=== PATIENT | female | born 1990 | race Caucasian/White ===

== ENCOUNTER → 2022-05-22 | Outpatient (CLI) | payer BC, OTHER, SELFPAY ==
[2022-05-22 11:56] LABS: Absolute Lymphocyte Count 2.24 X10^3/uL (0.83-4.51); Absolute Neutrophil Count 2.7 X10^3/uL (2.0-7.7); Basophil# 0.02 X10^3/uL; Basophil% 0.4 % (0-1); Eosinophil# 0.08 X10^3/uL; Eosinophils% 1.4 % (0-5); Hemoglobin 15.5 g/dL (12.0-15.0); Lymphocyte # 2.24 X10^3/ul (0.83-4.51); Lymphocyte % 40.1 % (19-41); Mean Corp Hgb Conc 33.7 g/dL (32-36); Mean Corpuscular Volume 86.1 fL (81-99); Mean Platelet Vol. 9.8 fl (6.2-12.0); Monocyte# 0.48 X10^3/uL; Monocyte% 8.6 % (0-10); NRBC Flagged by Analyzer 0 % (0-5); Neutrophil # 2.71 X10^3/uL (2.7-7.7); Neutrophil % 48.4 % (47-70); Platelet Count 249 K/mm3 (150-450); RBC Distribution Width CV 12.1 % (11.6-14.6); Red Blood Count 5.34 M/mm3 (4.2-5.4); White Blood Count 5.6 K/mm3 (4.4-11.0)
[2022-05-22 12:13] LABS: Hemoglobin A1c 5.1 % (3.8-5.6)
[2022-05-22 12:16] LABS: ALB/GLOB Ratio 1.1 RATIO (0.9-2.4); AST(SGOT) 13 U/L (15-37); Alanine Aminotransfer ALT/SGPT 17 U/L (13-56); Alkaline Phosphatase 48 U/L (45-117); Anion Gap 5 (5-15); BUN 13 mg/dL (7-18); Calcium,Total 8.8 mg/dL (8.5-10.1); Chloride 105 mmol/L (98-107); Cholesterol 178 mg/dL (200); Creatinine, Serum 0.87 mg/dL (0.55-1.02); EST Glomerular Filtration Rate 81 mL/min (>60); Est Glom Filt Rate - Afr Amer 98 mL/min (>60); Globulin 3.8 g/dL (2.2-4.2); Glucose 87 mg/dL (74-106); High Density Lipoprotein 50 mg/dL; Potassium 4.3 mmol/L (3.5-5.1); Protein, Total 7.8 g/dL (6.4-8.2); Sodium Level 138 mmol/L (136-145); Thyroid Stim Hormone (TSH) 1.23 uIU/mL (0.358-3.74); Triglycerides 104 mg/dL; Very Low Density Lipoprotein 21 mg/dL (5-40)
== END | disposition home or self-care (01) ==
LOC: MFPLAB 10:19
PROVIDERS: PCP Family Medicine; Referring Provider Family Medicine; Visit Provider Family Medicine
DX: Z00.00 Encounter for general adult medical examination without abnormal findings (principal); Z13.0 Encounter for screening for diseases of the blood and blood-forming organs and certain disorders involving the immune mechanism; Z13.1 Encounter for screening for diabetes mellitus; Z13.220 Encounter for screening for lipoid disorders; Z13.228 Encounter for screening for other metabolic disorders
CPT/HCPCS: 36415; 80053; 80061; 83036; 84443; 85025

== ENCOUNTER → 2022-08-01 | Outpatient (CLI) | payer OTHER, BC, SELFPAY ==
[2022-08-08 15:19] LABS: HPV APTIMA, High Risk Negative (Negative)
== END | disposition home or self-care (01) ==
LOC: LABSPEC 16:23
PROVIDERS: PCP Family Medicine; Visit Provider Obstetrics & Gynecology
DX: Z12.4 Encounter for screening for malignant neoplasm of cervix (principal)
CPT/HCPCS: 87624; 88175; G0145

== ENCOUNTER 2023-03-12 06:57 | Day surgery (SDC) | payer OTHER, SELFPAY ==
[2023-03-11 08:03] VITALS: BMI 24.8
[2023-03-12 07:06] LABS: Hematocrit 45.5 % (37-47); Hemoglobin 15.3 g/dL (12.0-15.0); Mean Corp Hgb Conc 33.6 g/dL (32-36); Mean Corpuscular Hgb 29.4 pg (27.0-32.0); Mean Corpuscular Volume 87.3 fL (81-99); Mean Platelet Vol. 9.7 fl (6.2-12.0); Platelet Count 244 K/mm3 (150-450); RBC Distribution Width CV 11.9 % (11.6-14.6); RBC Distribution Width SD 38.5 fl (35.1-43.9); Red Blood Count 5.21 M/mm3 (4.2-5.4); White Blood Count 4.8 K/mm3 (4.4-11.0)
[2023-03-12 07:18] LABS: Anion Gap 5 (5-15); BUN 18 mg/dL (7-18); BUN/Creat Ratio 20.2 RATIO (10-20); Calcium,Total 9.2 mg/dL (8.5-10.1); Chloride 106 mmol/L (98-107); Creatinine, Serum 0.89 mg/dL (0.55-1.02); EST Glomerular Filtration Rate 78 mL/min (>60); Est Glom Filt Rate - Afr Amer 94 mL/min (>60); Estimated Creatinine Clearance 94.84 ml/min; Glucose 90 mg/dL (74-106); Potassium 4.5 mmol/L (3.5-5.1); Sodium Level 137 mmol/L (136-145)
--- NOTE | 2023-03-12 07:19 | PCM.HP.STD ---
[facility] - General General Date of Service: 03/12/23 [facility] Narrative ANTHONY CAMARGO, is a 33 F who presents for venogram. She has painful, prominent varicosities of LLE which have been present in some capacity since her teenage years but became much worse after she had children a few years ago. She has consistently worn compression without sufficient relief of her symptoms. She was considering ablation with another vascular surgeon who felt she may have May-Thurner's but had planned to proceed with ablation, she initially presented to this office for second opinion. After discussion, ultimately decided to proceed first with venogram to assess for significant central venous compression prior to any potential venous ablation. She denies any interval changes in her medical history or medications since her last office visit. She denies history of VTE, prior venous ablations, prior injury/surgery to LLE. Today, she is feeling well with no CP, SOB, N/V, F/C, palpitations, lightheadedness/syncope. PFSH Home Medications multivitamin 1 tab PO DAILY 08/01/22 [History Last Taken Unknown] cholecalciferol (vitamin D3) 50 mcg (2,000 unit) capsule 50 mcg PO DAILY 11/27/22 [History Last Taken Unknown] Allergy/AdvReac Type Severity Reaction Status Date / Time No Known Allergies Allergy Unverified 12/04/22 14:32 Family History Mother Breast cancer Social History Smoking Status: Never smoker alcohol intake: never substance use type: does not use caffeine: Yes what type of physical activity do you participate in: running frequency: 3-4 times per week seatbelt use: always do you feel safe at home: Yes additional social history: - Blade BOYD ROS Narrative ROS General General: Yes weight change; No appetite, fatigue, colon cancer, breast cancer or weakness HEENT HEENT: No difficulty swallowing, eye injury, eye surgery, swollen glands or hoarseness Endo Endocrine: No thyroid disease, diabetes mellitus, thyroid cancer, Hair loss, heat intolerance or cold intolerance Skin Skin: No rash or changing moles Musc Musculoskeletal: No back problems, arthritis, rheumatoid arthritis, gout or joint pain Cardio Cardiovascular: No murmur, pacemaker, heart disease, atrial fibrillation, high blood pressure, heart attack, heart stent, palpitations, shortness of breat with exertion or chest pain Psych Psychiatric: No depression, anxiety or hearing voices Resp Respiratory: No shortness of breath, No sleep apnea, No cough, No COPD, No asthma, No emphysema and No wheezing Gastro Gastrointestinal: No abdominal pain, No nausea or vomiting, No diarrhea, No constipation, No blood in stool, No acid reflux, No hemorrhoids, No ulcers, No gallbladder problem and No black,tarry stools Flip Hematologic: No blood thinners, No blood disorders, No bleeding, No anemia and No blood clots Neuro Neurologic: No system reviewed and no additional complaints, except as documented, No as per HPI, No abnormal gait, No abnormal hearing, No abnormal movements, No abnormal speech, No behavioral changes, Yes burning sensations, No confusion, No convulsions, No disequilibrium, No dizziness, No localized weakness, No frequent falls, No headache(s), No lack of coordination, No loss of vision, No memory loss, No numbness, No other visual disturbances, No radicular pain, No restless legs, No sensory deficit, No syncope, No tingling, No tremor(s), No weakness and No other Vital Signs Vital Signs Vital Signs: Weight Weight: 168 lb 8 oz Body Mass Index (BMI) 24.8 Physical Exam Narrative Exam Const General: cooperative, healthy appearing, comfortable and no acute distress Orientation: alert, awake and oriented x3 HENMT Head: normal to inspection, normocephalic and atraumatic Ears: hearing grossly normal bilaterally and external ears normal Nose: external nose normal Eyes General: appearance normal, both eyes and all related structures EOM: EOM intact bilaterally Neck Neck: normal visual inspection, full ROM, trachea midline and no anterior neck swelling Resp Effort & Inspection: normal respiratory effort, able to speak in complete sentences, symmetric chest movement, no audible wheezes, not labored, no stridor and no use of accessory muscles Auscultation: clear to auscultation bilaterally Cardio Rate: regular rate Rhythm: regular rhythm Pulses: brachial pulses present, radial pulses present, posterior tibial pulses present and dorsalis pedis present Skin General: no rashes or lesions noted, no ecchymosis, no erythema, no mottling, no petechiae, no purpura and no pallor Trauma: no lacerations or abrasions Wounds: no wounds Neuro General: patient alert, patient awake, patient oriented x3, gait normal, moves all extremities, no focal motor deficits and CN's II-XI intact bilaterally Cognition: normal cognition Speech: speech normal Sensory Exam: no sensory deficits noted Extremities Pulses: Normal: Right Dorsalis Pedis Pulse, Left Dorsalis Pedis Pulse, Right Posterior Tibial Pulse, Left Posterior Tibial Pulse, Right Radial Pulse and Left Radial Pulse Additional Details: Prominent cluster of varicosities medial aspect L knee, less prominent varicosities extending up the thigh and down calf medially and laterally. No varicosities on RLE. Psych Appearance: grossly normal Mental Status: mental status grossly normal Mood: congruent mood Affect: normal affect Speech and Movement: speech and movement normal Attitude: cooperative Thought Process: normal Thought Content: normal Judgment: judgment good Results Lab / Micro Data Result Diagrams: 03/12/23 06:52 03/12/23 06:52 Labs: Laboratory Results - last 24 hr 03/12/23 06:52: WBC 4.8, RBC 5.21, Hgb 15.3 H, Hct 45.5, MCV 87.3, MCH 29.4, MCHC 33.6, RDW Std Deviation 38.5, RDW Coeff of Derick 11.9, Plt Count 244, MPV 9.7 03/12/23 06:52: Sodium 137, Potassium 4.5, Chloride 106, Carbon Dioxide 26.0, Anion Gap 5, BUN 18, Creatinine 0.89, Estim Creat Clear Calc 94.84, Est GFR (MDRD) Af Amer 94, Est GFR (MDRD) Non-Af 78, BUN/Creatinine Ratio 20.2 H, Glucose 90, Calcium 9.2 Assessment & Plan Assessment/Plan (1) Varicose veins of left lower extremity: PLAN: We discussed the procedure and patient had all of her questions and concerns addressed. She remains agreeable to proceed with venogram today with the understanding that if significant compression is identified it would be treated with stenting as appropriate. She also understands that if stents were placed she would be placed on DAPT x1 year then ASA indefinitely. She will follow-up in the office in 2-4 weeks following procedure today.
[2023-03-12 07:26] LABS: Internal QC Validated? YES +Cl - CLEAR BKGD; Pregnancy, Serum, hCG Quali. NEGATIVE Negative
--- NOTE | 2023-03-12 12:49 | PCM.OPRPT ---
Report of Operation Date of Procedure: 03/12/23 Pre-Operative Diagnosis: venous hypertension, bilateral venous reflux and painful varicose veins Post-Operative Diagnosis: same Surgery/Procedure Performed:: venogram IVC IVUS IVC, bilateral common/external iliac veins angioplasty/stent IVC, bilateral common/external iliac veins Surgeon: Dangelo Rome Type of Anesthesia: Local and Sedation,Conscious Estimated Blood Loss (mL): 3 Description of Procedure: HPI: Patient is a 33-year-old female with lower extremity painful varicose veins and significant reflux including common femoral deep vein reflux suggestive of more proximal obstructive process. She presents now for venogram with possible invention. Description of procedure: Upon obtaining informed consent and verification correct patient procedure site patient was taken to the [facility] where she was positioned prepped and draped in usual sterile fashion. Time was then performed and conscious sedation ministered with Versed and fentanyl. Skin overlying the left common femoral vein was anesthetized with 1% lidocaine and the vessel accessed under ultrasound guidance with a micropuncture needle wire. This was then exchanged for micropuncture sheath through which injection ilio caval venogram was performed which revealed satisfactory placement with no extravasation or dissection. Also revealed significant pelvic collaterals venous flow and widened superior aspect of the common iliac vein. This suggested compression of the iliac vein. Through the micropuncture sheath a J-wire was advanced and the micropuncture sheath exchanged out for a 9 [place] sheath. Skin overlying the right femoral vein was anesthetized with 1% lidocaine and the vessel accessed under all segments with a microneedle wire. This was exchanged out for micropuncture sheath which injection ilio caval venogram was performed which again revealed satisfactory placement no extravasation or dissection. This revealed a fairly normal appearance of the right iliac system normal-appearing vena cava. The micropuncture sheath was then exchanged out for a second 9 [place] sheath and a J-wire advanced via the sheath into the vena cava. Patient was in heparinized allowed to circulate 3 minutes and serial heparin dosing performed based on ACT measurements. Intravascular ultrasound advanced via the left femoral access sheath into the inferior vena cava and recorded pullback of the IVC, left common iliac, left external iliac vein was performed. This revealed 75% compression of the vena cava just above the confluence and of the superior aspect of the left common iliac vein. There is also secondary compression point of the superior portion of the left external iliac vein. The ultrasound probe was then withdrawn and readvanced via the right femoral access sheath and recorded pullback of the IVC, right common iliac, right external iliac performed. This revealed 79% compression of the right external iliac. [place] this was amenable to endovascular therapy ilio caval stenting was required. A [place] Vena self-expanding stent 16 x 140 was advanced via the right femoral access sheath and deployed with satisfactory coverage of the stenting cephalad to just below the confluence. Next a 14 x 140 [place] Vena self-expanding stent 14 x 140 was advanced via the left femoral access sheath and positioned femoral artery and iliac vein covering the area of compression and extending up to the IVC confluence. This was deployed in position stents were then postdilated 12 mm angioplasty balloon to fix them in the position. Next wallstents were selected for the ilio-caval component of the intervention. A 16 x 90 wildcraft Wallstent was selected for each of the common iliac and IVC stents. These were advanced in the position with satisfactory overlap into the initial stents and coverage of the area of compression up into the IVC. These were then deployed simultaneously with satisfactory stent positioning and good alignment at the superior aspect. Delivery system was then withdrawn and the wallstents were then postdilated with a 14 mm angioplasty balloon simultaneously across the IVC stented segment and down into the common iliac stents bilaterally. Balloons were then withdrawn and completion intravascular ultrasound assessment was performed via each of the femoral access sheaths confirming satisfactory stent to wall apposition throughout the entirety of the stented segment with no residual compression identified. There was satisfactory stent overlap. And stent alignment at the superior aspect. Wires were then withdrawn and the sheaths were removed with manual pressure held for 5 minutes with satisfactory stasis noted. Patient was then awakened from sedation taken recovery room for bedrest before discharged home. Grafts/Implants Used: Right- Wallstent 16x90, Vena [id number]: Left- Wallstent 16x90, Vena [id number]
[2023-03-13 09:52] LABS: ACT Activated Clotting Time 233 sec (74-137)
== END 2023-03-12 13:55 | disposition home or self-care (01) ==
PROVIDERS: PCP Family Medicine; Referring Provider Surgery Trauma Surgery; Visit Provider Surgery Trauma Surgery
DX: I83.813 Varicose veins of bilateral lower extremities with pain (principal)
CPT/HCPCS: 36010; 36415; 37238; 37239; 37252; 37253; 75825; 76937; 80048; 84703; 85027; 85347; 99152; 99153; C1753; J7040; C1769; C1876; C1887

== ENCOUNTER → 2023-09-16 | Outpatient (CLI) | payer OTHER, SELFPAY ==
--- NOTE | 2023-09-16 08:57 | AAVD_ITS ---
Reason For Study: BLE Iliac Stents Inferior Vena Cava Proximal inferior vena cava measures 1.98 x 2.11 cm. in the cross-sectional axis. Proximal inferior vena cava measures 1.58 cm. in the longitudinal axis. Mid inferior vena cava measures 1.2 cm. in the longitudinal axis. The inferior vena cava has spontaneous, phasic flow throughout. Left Common Iliac Vein Stent Noted Throughout CIV Prox Stent Trans - 1.08cm x 1.06cm Prox Stent Long - 1.06cm Mid Stent Trans - 0.92cm x 0.98cm Mid Stent Long - 1.00cm Dist Stent Trans - 1.00cm x 1.13cm Dist Stent Long - 1.08cm Post Stent Long - 1.18cm. The left common iliac vein has spontaneous, phasic flow throughout. Right Common Iliac Vein Stent Noted Throughout CIV Prox Stent Trans - 1.05cm x 1.00cm Prox Stent Long - 1.05cm Mid Stent Prox - 1.29cm x 1.27cm Mid Stent Long - 1.31cm Dist Stent Prox - 1.33cm x 1.29cm Dist Stent Long - 1.31cm Post Stent Long - 1.15cm.. The right common iliac vein has spontaneous, phasic flow throughout. Procedure Aorta IVC Iliac vasculature or bypass grafts [id number]. The exam was diagnostic. Exam performed in department. VL/Abd Aortic/IVC Duplex scan Interpretation Summary Patent inferior vena cava and bilateral iliac vein stents with normal flow sally acteristics. Ordering Physician: Griselda Majano Referring Physician: Griselda Majano Performed By: Frederic Malloy RVT
== END | disposition home or self-care (01) ==
LOC: CVS 08:56
PROVIDERS: PCP Family Medicine; Referring Provider Physician Assistant; Visit Provider Physician Assistant
DX: Z48.812 Encounter for surgical aftercare following surgery on the circulatory system (principal); I87.1 Compression of vein
CPT/HCPCS: 93978

== ENCOUNTER → 2024-03-07 | Outpatient (CLI) | payer OTHER, SELFPAY ==
--- NOTE | 2024-03-07 08:54 | AAVD_ITS ---
Reason For Study: Bilateral Iliac vein stents Inferior Vena Cava Proximal inferior vena cava measures 1.78 x 1.62 cm. in the cross-sectional axis. Proximal inferior vena cava measures 1.65 cm. in the longitudinal axis. Mid inferior vena cava measures 1.40 x 1.85 cm. in the cross-sectional axis. Mid inferior vena cava measures 1.20 cm. in the longitudinal axis. IVC distal, right stent, 0.98 x 0.94 x 1.18 cm. IVC distal, left stent, 1.04 x 0.97 x 1.12 cm. The inferior vena cava has spontaneous, phasic flow throughout. Left Common Iliac Vein Left common iliac vein measures 0.93 x 0.99 cm. in the cross-sectional axis. Left common iliac vein measures 0.94 cm. in the longitudinal axis. Stent noted in the left CIV. The left common iliac vein has spontaneous, phasic flow throughout. Right Common Iliac Vein Right common iliac vein measures 1.41 x 1.29 cm. in the cross-sectional axis. Right common iliac vein measures 1.31 cm. in the longitudinal axis. Stent noted in the right CIV. The right common iliac vein has spontaneous, phasic flow throughout. Procedure Aorta IVC Iliac vasculature or bypass grafts [id number]. Exam performed in department. VL/Abd Aortic/IVC Duplex scan Interpretation Summary Patent IVC and bilateral iliac vein stents with normal venous flow pattern. Ordering Physician: Griselda Majano Referring Physician: Derrick Cisneros Performed By: Peggy Whitlock RVT
== END | disposition home or self-care (01) ==
PROVIDERS: PCP Family Medicine; Referring Provider Physician Assistant; Visit Provider Physician Assistant
DX: Z48.812 Encounter for surgical aftercare following surgery on the circulatory system (principal); I87.1 Compression of vein
CPT/HCPCS: 93978

== ENCOUNTER → 2024-04-18 | Outpatient (CLI) | payer OTHER, SELFPAY ==
--- NOTE | 2024-04-18 09:04 | VDLE_ITS ---
Version 2 Reason For Study: LLE Pain RIGHT LEFT CFV is compressible, spontaneous, phasic, CFV is compressible, spontaneous, phasic, competent and demonstrates normal competent, and demonstrates normal augmentation. augmentation. Procedure FV is compressible, spontaneous, phasic, This is a venous duplex using B-mode, color competent and demonstrates normal flow and spectral Doppler. augmentation. Exam performed in department. POP V is compressible, spontaneous, phasic, The exam was diagnostic. competent and demonstrates normal augmentation. T/P Trunk is compressible. PTV is compressible. LT PerV is compressible. SFJ is INCOMPETENT and measures 0.97 cm. GSV proximal thigh measures 0.77 x 0.76 cm. GSV at knee measures 0.40 x 0.38 cm. GSV above knee is INCOMPETENT for greater than 0.5 seconds. GSV below knee is competent. SSV proximal calf is competent and measures 0.28 x 0.30 cm. GSV/ASV Tortuous prox calf to dist thigh. SSV branch appears to feed varicosities outer calf. VL/Venous Duplex US, Unilateral Interpretation Summary Deep veins of the left lower extremity are patent and compressible segmentally. There is no evidence of left lower extremity deep vein thrombosis. The left great saphenous vein kev ears patent and compressible segmentally. Positive for reflux in the left saphenofemoral junction for greater than 0.5 se conds, great saphenous vein above the knee. Ordering Physician: Griselda Majano Referring Physician: Derrick Cisneros Performed By: Frederic Malloy RVT
== END | disposition home or self-care (01) ==
PROVIDERS: PCP Family Medicine; Referring Provider Physician Assistant; Visit Provider Physician Assistant
DX: I83.92 Asymptomatic varicose veins of left lower extremity (principal)
CPT/HCPCS: 93971

== ENCOUNTER → 2024-06-22 | Outpatient (CLI) | payer OTHER, SELFPAY ==
[2024-06-22 12:20] LABS: Absolute Lymphocyte Count 1.77 X10^3/uL (0.83-4.51); Absolute Neutrophil Count 3.7 X10^3/uL (2.0-7.7); Basophil# 0.03 X10^3/uL; Basophil% 0.5 % (0-1); Eosinophil# 0.09 X10^3/uL; Eosinophils% 1.5 % (0-5); Hematocrit 44.6 % (37-47); Hemoglobin 14.7 g/dL (12.0-15.0); Lymphocyte # 1.77 X10^3/ul (0.83-4.51); Lymphocyte % 29.3 % (19-41); Mean Corpuscular Hgb 28.7 pg (27.0-32.0); Mean Corpuscular Volume 87.1 fL (81-99); Mean Platelet Vol. 9.8 fl (6.2-12.0); Monocyte# 0.45 X10^3/uL; Monocyte% 7.5 % (0-10); NRBC Flagged by Analyzer 0 % (0-5); Neutrophil # 3.67 X10^3/uL (2.7-7.7); Neutrophil % 60.7 % (47-70); Platelet Count 281 K/mm3 (150-450); RBC Distribution Width CV 11.8 % (11.6-14.6); RBC Distribution Width SD 37.5 fl (35.1-43.9); Red Blood Count 5.12 M/mm3 (4.2-5.4)
[2024-06-22 12:33] LABS: AST(SGOT) 11 U/L (15-37); Alanine Aminotransfer ALT/SGPT 16 U/L (13-56); Albumin, Serum 3.9 g/dL (3.2-5.0); Alkaline Phosphatase 49 U/L (45-117); Anion Gap 2 (5-15); BUN 11 mg/dL (7-18); BUN/Creat Ratio 13.1 RATIO (10-20); Calcium,Total 9.4 mg/dL (8.5-10.1); Chloride 104 mmol/L (98-107); Cholesterol 172 mg/dL (200); Creatinine, Serum 0.84 mg/dL (0.55-1.02); EST Glomerular Filtration Rate 83 mL/min (>60); Est Glom Filt Rate - Afr Amer 101 mL/min (>60); Globulin 3.8 g/dL (2.2-4.2); Glucose 95 mg/dL (74-106); High Density Lipoprotein 47 mg/dL; Potassium 4.5 mmol/L (3.5-5.1); Protein, Total 7.7 g/dL (6.4-8.2); Sodium Level 137 mmol/L (136-145); Triglycerides 88 mg/dL; Very Low Density Lipoprotein 18 mg/dL (5-40)
[2024-06-22 12:35] LABS: Vitamin D,25 Hydroxy 55.2 ng/mL
== END | disposition home or self-care (01) ==
LOC: MFPLAB 09:49
PROVIDERS: PCP Family Medicine; Visit Provider Family Medicine
DX: I83.90 Asymptomatic varicose veins of unspecified lower extremity (principal); Z13.21 Encounter for screening for nutritional disorder; Z13.220 Encounter for screening for lipoid disorders; Z86.32 Personal history of gestational diabetes
CPT/HCPCS: 36415; 80053; 80061; 82306; 83036; 85025

== ENCOUNTER → 2024-08-13 | Outpatient (CLI) | payer OTHER, SELFPAY ==
--- NOTE | 2024-08-13 10:54 | US_ITS ---
HISTORY: right lower quadrant pain. TECHNIQUE: Transabdominal and transvaginal pelvic ultrasound was performed with ace scale , spectral Doppler, and color Doppler evaluation. 130 images. COMPARISON: None. FINDINGS: UTERUS: 8.9 x 4.1 x 5.2 cm. Anteverted. ENDOMETRIAL THICKNESS: 6 mm. Tampon incidentally noted in the vagina. RIGHT OVARY: 1.7 x 2.2 x 2.7 cm. Vascular flow demonstrated. No adnexal masses. LEFT OVARY: 1.5 x1.9 x 3.4 cm with a 1.1 cm dominant follicle. Vascular flow demonstrated. No adnexal masses. FREE FLUID: Trace. URINARY BLADDER: Well-distended at 397 cc. US/Pelvic w/ Transvaginal IMPRESSION: Unremarkable pelvic ultrasound. Electronically Signed: Kayla Arce MD at 15:10 EST ,
== END | disposition home or self-care (01) ==
LOC: US 10:52
PROVIDERS: PCP Family Medicine; Referring Provider Obstetrics & Gynecology; Visit Provider Obstetrics & Gynecology
DX: R10.31 Right lower quadrant pain (principal); I87.1 Compression of vein
CPT/HCPCS: 76830; 76856

== ENCOUNTER 2024-12-22 07:18 | Day surgery (SDC) | payer OTHER, SELFPAY ==
[2024-12-21 08:17] VITALS: BMI 24.6
[2024-12-22 07:33] LABS: Hematocrit 42.7 % (37-47); Hemoglobin 15.1 g/dL (12.0-15.0); Mean Corp Hgb Conc 35.4 g/dL (32-36); Mean Corpuscular Hgb 29.8 pg (27.0-32.0); Mean Corpuscular Volume 84.4 fL (81-99); Mean Platelet Vol. 9.6 fl (6.2-12.0); Platelet Count 229 K/mm3 (150-450); RBC Distribution Width CV 12.2 % (11.6-14.6); Red Blood Count 5.06 M/mm3 (4.2-5.4); White Blood Count 4.8 K/mm3 (4.4-11.0)
[2024-12-22 08:21] LABS: Anion Gap 9 (5-15); BUN 17 mg/dL (4-19); BUN/Creat Ratio 19.9 RATIO (10-20); Carbon Dioxide 25.2 mmol/L (21.0-32.0); Chloride 105 mmol/L (98-108); Creatinine, Serum 0.86 mg/dL (0.70-1.20); EST Glomerular Filtration Rate 92 (>60); Estimated Creatinine Clearance 97.24 ml/min (50-250); Glucose 100 mg/dL (70-99); Potassium 4.7 mmol/L (3.3-5.1); Sodium Level 139 mmol/L (133-145)
--- NOTE | 2024-12-22 09:53 | PCM.HP.STD ---
HPI - General HPI Narrative ANTHONY CAMARGO, is a 34 F who presents with left lower extremity painful varicose veins refractory to compression. She has GSV reflux though the vessel inferiorly obliterates and communication to lower leg is via varicosities that are also incompetent. She presents for GSV chemical ablation with phlebectomy of communicating varicosities. 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 Home Medications ?Medication ?Instructions ?Recorded ?Last Taken ?Type multivitamin 1 tab PO DAILY 08/01/22 Unknown History cholecalciferol (vitamin D3) 50 50 mcg PO DAILY 11/27/22 Unknown History mcg (2,000 unit) capsule aspirin 81 mg tablet,delayed 81 mg PO DAILY 04/02/23 Unknown History release Allergy/AdvReac Type Severity Reaction Status Date / Time No Known Allergies Allergy Verified 08/02/24 14:12 Family History Mother Breast cancer Surgical History S/P insertion of iliac artery stent Social History Smoking Status: Never smoker alcohol intake: never substance use type: does not use caffeine: Yes what type of physical activity do you participate in: running and weight training frequency: 5-6 times per week seatbelt use: always do you feel safe at home: Yes additional social history: - Blade ROS Constitutional Constitutional: Denies chills, fever(s), frequent falls, lethargy or weakness Eyes Eyes: Denies blind spots, change in vision or loss of vision ENT HEENT: Denies bleeding gums, hoarseness or sore throat Cardiovascular Cardiovascular: Denies abdominal pain, bluish discoloration of hand/feet, chest pain with activity, claudication, cold extremities, cyanosis, dyspnea on exertion, erythema on extremities, irregular heart rhythm, leg edema, leg ulcers, numbness in extremities or weakness in extremities Respiratory/Chest Respiratory/Chest: Denies cough, excessive phlegm production, shortness of breath at rest, shortness of breath with exertion or wheezing Gastrointestinal Gastrointestinal: Denies anorexia, change in stool character, constipation, diarrhea, melena or rectal bleeding Genitourinary Genitourinary: Denies dysuria or hematuria Musculoskeletal Musculoskeletal: Denies abnormal gait Integumentary Integumentary: Reports other Details: ; Denies erythema, non-healing lesions or wounds Neurologic Neurologic: Denies abnormal speech, focal weakness, headache(s), loss of vision, numbness, paresthesias or sensory deficit Hematologic/Lymphatic Hematologic/Lymphatic: Denies easy bleeding, easy bruising or lymphadenopathy Vital Signs Vital Signs Vital Signs: Weight Weight: 167 lb Body Mass Index (BMI) 24.6 Physical Exam Const alert, oriented x3, no apparent distress and healthy appearing General Appearance: cooperative; Negative for combative or lethargic Orientation / Consciousness: awake Exam Limitations: no limitations HEENT Head and Scalp: normocephalic and atraumatic Eyes EOMs intact bilaterally General Eye: normal appearance of both eyes Neck full ROM General: trachea midline Resp normal respiratory effort and no use of accessory muscles Effort and Inspection: Negative for labored, stridor or audible wheezes Cardio regular rate and regular rhythm Back/Spine Cervical Spine: cervical ROM normal Extremity full ROM, normal capillary refill and no clubbing, cyanosis or edema Skin no rashes or lesions noted and no wounds Neuro oriented x3, CN's II-XII intact bilaterally, no focal motor deficits and no sensory deficits noted Psych thought process normal, cooperative, affect normal, speech normal and activity/motor behavior normal Results Lab / Micro Data 12/22/24 07:24 12/22/24 07:24 Labs: Laboratory Results - last 24 hr 12/22/24 07:24: WBC 4.8, RBC 5.06, Hgb 15.1 H, Hct 42.7, MCV 84.4, MCH 29.8, MCHC 35.4, RDW Std Deviation 37.0, RDW Coeff of Derick 12.2, Plt Count 229, MPV 9.6, Sodium 139, Potassium 4.7, Chloride 105, Carbon Dioxide 25.2, Anion Gap 9, BUN 17, Creatinine 0.86, Estim Creat Clear Calc 97.24, Est GFR (MDRD) Non-Af 92, BUN/Creatinine Ratio 19.9, Glucose 100 H, Calcium 9.0 Assessment & Plan Assessment/Plan (1) Varicose veins of left lower extremity: QUALIFIERS: Varicose vein complication: pain Qualified Code(s): I83.812 - Varicose veins of left lower extremity with pain PLAN: -with pain -chemical ablation lefft GSV, stab phlebectomy
--- NOTE | 2024-12-22 17:00 | PCM.OPRPT ---
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 She had venous duplex imaging which revealed reflux in the great saphenous vein from the saphenofemoral junction to the proximal calf with the symptomatic varicosities emanating from the saphenous at this location. Inferior to the confluence of the varicosities with the saphenous vein the vessel is very small in caliber so it was not expected that we would be able to successfully chemically ablate the origins of the saphenous varicosities along with the great saphenous treatment zone. So she is taken now for chemical ablation of the great saphenous vein with planned ligation and phlebectomy of the varicosities. Description of procedure: Upon obtaining form consent and verification correct patient procedure site patient taken to the Material Control Supervisor where she was positioned prepped and draped in usual sterile fashion. Time was then performed conscious sedation administered Versed and fentanyl. The great saphenous vein was evaluated ultrasound and found to be patent and continuous from the saphenofemoral junction down to the proximal calf. In the proximal calf there is a large varicosity cluster confluence and inferior to this the great saphenous vein was very small in caliber and too small to access. From the varicosity confluence and cephalad the vessel was of satisfactory caliber to access ablated. In order to maximize the length of treatment zone feasible with chemical ablation we decided to directly access at the confluence of the varicosity with the great saphenous vein. Skin overlying the vessel at this location was anesthetized 1% lidocaine and the vessel attempted be accessed under ultrasound guidance with a micropuncture needle wire. The vessel was very shallow and prior to spasm so after unsuccessful attempts we decided to create our stab phlebectomy incision with an 11 blade in transverse orientation. The great saphenous vein and varicosity confluence was then grasped and retracted into the incision. The micropuncture needle and wire were then used to directly access the vessel at this location and advanced under ultrasound guidance. The needle was then exchanged for the 7 Maltese ablation sheath which was advanced without resistance. Through the 7 Maltese sheath a angled glide wire was advanced under ultrasound guidance traversing the saphenous vein up to the saphenofemoral junction. The glue delivery guide was then advanced over the wire and positioned 5 cm inferior to the saphenofemoral junction. Through the guide to the glue delivery catheter was advanced in position appropriate distance 5 cm inferior to the saphenofemoral junction. Glue was then deposited along the great saphenous vein to the access sheath. The guide and catheter then withdrawn followed by their sheath removal and the saphenous vein at the access site clamped. Varicosities at this location were then extracted from the wound and the ends of the great saphenous vein and varicosities ligated with silk ties. Incision was then closed with Dermabond and dry sterile dressings and Tonny wrap supplied. The patient was then taken to the recovery area with plan discharged home. Surgical Findings: See above Complications Complications: No
== END 2024-12-22 12:10 | disposition home or self-care (01) ==
PROVIDERS: PCP Family Medicine; Referring Provider Surgery Trauma Surgery; Visit Provider Surgery Trauma Surgery
DX: I83.812 Varicose veins of left lower extremity with pain (principal); Z79.82 Long term (current) use of aspirin
CPT/HCPCS: 36415; 36482; 80048; 85027; 99152; 99153; C1894; C1769

== ENCOUNTER → 2024-12-26 | Outpatient (CLI) | payer OTHER, SELFPAY ==
--- NOTE | 2024-12-26 13:56 | VDLE_ITS ---
Reason For Study Reason For Study: Left leg pain RIGHT LEFT CFV is compressible, spontaneous, phasic, competent CFV is compressible, spontaneous, phasic, competent, and demonstrates normal augmentation. and demonstrates normal augmentation. Procedure FV is compressible, spontaneous, phasic, competent This is a venous duplex using B-mode, color flow and and demonstrates normal augmentation. spectral Doppler. POP V is compressible, spontaneous, phasic, competent Exam performed in department. and demonstrates normal augmentation. T/P Trunk is compressible. PTV is compressible. LT PerV is compressible. GSV from junction to prox calf is occluded s/p Venaseal. GSV mid-distal calf is compressible. Thrombus filled varicose vein noted at the proximal calf at area of ligation. VL/Venous Duplex US, Unilateral Interpretation Summary Deep veins of the left lower extremity are patent and compressible segmentally. There is no evidence of left lower extremity deep vein thrombosis. Left great saphenous vein and calf varicosities occluded consistent with recent ablation. Ordering Physician: Griselda Majano Referring Physician: Derrick Cisneros Performed By: Peggy Whitlock RVT
== END | disposition home or self-care (01) ==
LOC: CVS 13:54
PROVIDERS: PCP Family Medicine; Referring Provider Physician Assistant; Visit Provider Physician Assistant
DX: Z48.812 Encounter for surgical aftercare following surgery on the circulatory system (principal); I83.812 Varicose veins of left lower extremity with pain
CPT/HCPCS: 93971

== ENCOUNTER → 2025-03-08 | Outpatient (CLI) | payer OTHER, SELFPAY ==
--- NOTE | 2025-03-08 07:55 | AAVD_ITS ---
Reason For Study Reason For Study: S/P IVC and Iliac Stents Inferior Vena Cava Proximal inferior vena cava measures 2.43x2.43 cm. in the cross-sectional axis. Proximal inferior vena cava measures 2.42 cm. in the longitudinal axis. Mid inferior vena cava measures 1.87x1.75 cm. in the cross-sectional axis. Mid inferior vena cava measures 1.65 cm. in the longitudinal axis. Distal inferior vena cava measures 1.26x1.35 cm. in the cross-sectional axis. Distal inferior vena cava measures 1.56 cm. in the longitudinal axis. The inferior vena cava has spontaneous, phasic flow throughout. Left Common Iliac Vein Left common iliac vein measures 1.12x1.33 cm. in the cross-sectional axis. Left common iliac vein measures 1.01 cm. in the longitudinal axis. The left common iliac vein has spontaneous, phasic flow throughout. Stent noted in the left CIV. Right Common Iliac Vein Right common iliac vein measures 1.47x1.44 cm. in the cross-sectional axis. Right common iliac vein measures 1.53 cm. in the longitudinal axis. The right common iliac vein has spontaneous, phasic flow throughout. Stent noted in the right CIV. Procedure Aorta IVC Iliac vasculature or bypass grafts [id number]. Exam performed in department. VL/Abd Aortic/IVC Duplex scan Interpretation Summary Inferior vena cava and bilateral iliac vein stents patent with normal venous fl ow pattern. Ordering Physician: Griselda Majano Referring Physician: Derrick Cisneros MD Performed By: Mary Carolina RVT
--- OUTSIDE RECORDS SUMMARY | 2025-03-08 08:13 | XMS RPT_ITS | CCD ---
Author Organization [facility] Care Team Providers Care Sensitized Paper Tester Name Role Phone Care Physician, No Primary Referring Provider Un available Dr. Jennifer Hampton Attending Provider [phone] DO Linh Strickland Primary Care Provider DO Linh Strickland Primary Care Provider DO Linh Strickland Referring Provider SAVANAH Teague Attending Provider Dr. Dangelo Rome Referring Provider [phone] Dangelo Rome Other Provider DO Linh Strickland Primary Care Provider Dr. Dangelo Rome Attending Provider 1([facility])-[phone] Blayne CHAN, Derrick Primary Care Provider Dr. Dangelo Rome MD Attending Provider [phone] Dr. Dangelo Rome MD Referring Provider [phone] Dr. Dangelo Rome MD Other Provider 1([facility])-57 [phone] Griselda Underwood Attending Provider [phone] Griselda Underwood Referring Provider [phone] Blayne, Chalon Primary Care Unavailable Jennifer Hampton Attending Unavailabl e Jennifer Hampton Referring Unavailabl e Griselda Majano Attending Unavailable Majano, Griselda Referring Unavailable Blayne, Chalon Primary Care Unavailable Blayne, Chalon Primary Care Unavailable Majano, Griselda Attending Unavailable Majano, Griselda Referring Unavailable Blayne, Chalon Primary Care Unavailable Majano, Griselda Attending Unavailable Majano, Griselda Referring Unavailable Blayne, Chalon Primary Care Unavailable Wild, Dangelo Attending Unavailable Majano, Griselda Referring Unavailable Blayne, Chalon Primary Care Unavailable Majano, Griselda Attending Unavailable Blayne, Chalon Referring Unavailable Blayne, Chalon Primary Care Unavailable Wild, Dangelo Referring Unavailable Wild, Dangelo Consulting Unavailable Wild, Dangelo Attending Unavailable Blayne, Chalon Primary Care Unavailable Majano, Griselda Attending Unavailable Blayne, Chalon Referring Unavailable Blayne, Chalon Primary Care Unavailable Jennifer Hampton Attending Unavailabl e Blayne, Chalon Referring Unavailable Majano, Griselda Attending Unavailable Blayne, Chalon Referring Unavailable Blayne, Chalon Primary Care Unavailable Mitchell, Dangelo Attending Unavailable Blayne, Chalon Primary Care Unavailable Wild, Dangelo Attending Unavailable Majano, Griselda Referring Unavailable Blayne, Chalon Primary Care Unavailable Mitchell, Dangelo Attending Unavailable Majano, Griselda Referring Unavailable Blayne, Chalon Primary Care Unavailable Mitchell, Dangelo Referring Unavailable Mitchell, Dangelo Attending Unavailable Blayne, Chalon Primary Care Unavailable Blayne, Chalon Attending Unavailable Blayne, Chalon Primary Care Unavailable Majano, Griselda Attending Unavailable Majano, Griselda Referring Unavailable Medications Current Medications Medication Drug Class(es) Dates Sig (Normalized) Sig (Original) aspirin 81 mg delayed release oral tablet (3 sources) Platelet Aggregation Inhibitor, Nonsteroidal Anti-inflammatory Drug Start: 04-02-2023 take 1 tablet by mouth once daily Aspirin 81 mg tablet,delayed release (DR/EC) Active 81 mg PO DAILY April 02, 2023 12:00am cholecalciferol 0.05 mg oral capsule (4 sources) Vitamin D Start: 11-27-2022 take 1 capsule by mouth once daily Cholecalciferol (Vitamin D3) 50 mcg (2,000 unit) capsule Active 50 ug PO DAILY November 27, 2022 1:00am Multivitamin preparation (3 sources) Start: 08-01-2022 take 1 tablet by mouth once daily Multivitamin Active 1 TABLET PO DAILY August 01, 2022 12:00am Start: 08-01-2022 take 1 tablet by immanuel th once daily Multivitamin Active 1 TABLET PO DAILY July 31, 2022 11:00pm Multivitamin tablet (2 sources) Start: 08-01-2022 Multivitamin t ablet Active 1 {tbl} PO DAILY August 01, 2022 12:00am Completed/Discontinued Medications Medication Drug Class(es) Dates Sig (Normalized) Sig (Original) clopidogrel 75 mg oral tablet (3 sources) P2Y12 Platelet Inhibitor Start: 03-12-2023 End: 03-29-2024 take 1 tablet by mouth once daily Clopidogrel (Plavix) 75 mg tablet Discontinued 75 mg PO DAILY 90 March 12, 2023 12:00am March 29, 2024 9:33am Problems Active Problems Problem Classification Problem Date Documented Da te Episodic/Chronic Other aftercare (3 sources) Surgical follow-up; Translations: [Encounter for surgical aftercare following surgery on the circulatory system] 04-02-2023 Episodic Other aftercare (2 sources) Encounter for surgical aftercare following surgery on the circulatory system; Translations: [Encounter for surgical aftercare following surgery on the circulatory system] Onset: 12-29-2024 Episodic Other diseases of veins and lymphatics (3 sources) Occlusion of iliac vein; Translations: [Compression of vein] 04-02-2023 Episodic Other diseases of veins and lymphatics (2 sources) Iliac vein compression syndrome; Translations: [Compression of vein] 08-02-2024 Episodic Other diseases of veins and lymphatics (2 sources) Compression of vein; Translations: [Compression of vein] Onset: 08-02-2024 Episodic Varicose veins of lower extremity (13 sources) Varicose veins of lower extremity; Translations: [Asymptomatic varicose veins of left lower extremity] Onset: 05-04-2024 11-27-2022 Episodic Past or Other Problems Problem Classification Problem Date Documented Da te Episodic/Chronic Abdominal pain (3 sources) Right lower quadrant pain; Translations: [Right lower quadrant pain] Onset: 08-18-2024 08-02-2024 Episodic Results Test Name Value Interpretation Reference Range Facility MR/BMSJannie 01-11-2025 MR/BMSMONIQUE [facility] Vascular Surgery [address] [place], [place] [address] OFFICE VISIT Date of Service: 01/11/25 MR#: [id number] Acct: [id number] Name: ANTHONY CAMARGO Rep #: [id number] : 1990 Provider: SAVANAH Gillette Age/Sex: 34/F Location: BMS.BVS Status: Signed Intake Vital Signs 08/02/24 14:12 12/22/24 07:49 01/11/25 08:34 Height 5 ft 9 in 5 ft 9 in Weight: 169 lb BP 115/61 Blood Pressure Location Lt brachial Position Sitting Respiration 16 Pulse 60 Pulse Source Monitor Temp 97.2 F L Temp Source Temporal Pulse Oximetry (%) 100 Oxygen Delivery Method room air Intake Visit Reasons: Post Ablation/Phlebectomy 3-4 WK FU Is patient in pain?: No Allergies No Known Allergies Allergy (Verified 01/11/25 08:36) Medications ???Medication ???Instructions ???Recorded ???Confirmed ???Type multivitamin 1 tab PO DAILY 08/01/22 01/11/25 H istory cholecalciferol (vitamin D3) 50 50 mcg PO DAILY 11/27/22 01/11/25 History mcg (2,000 unit) capsule aspirin 81 mg tablet,delayed 81 mg PO DAILY 04/02/23 01/11/25 H istory release Is last menstrual period known: Yes Post menopausal: No Patient : No Have you fallen in the past year?: No PFSH 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 Following the procedure she did have a focal phlebitic reaction in her L thigh near the site of ablation; this resolved within a few days with conservative care including NSAIDs, warm compresses, compression, and elevation. Her post- procedure duplex on 12/27/24 showed successful GSV ablation, thrombus filled varicose veins in the left calf at the area of ligation, and was otherwise negative for DVT. Recall that she is also s/p IVC and bilateral iliac vein stenting in 02/2023; serial imaging to this point has been satisfactory. She continues to take ASA 81mg daily. She reports that her LLE has been feeling great, much less pain and discomfort since the ablation and phlebectomy. ROS General General: No weight change, appetite, fatigue, colon cancer, breast cancer or weakness HEENT HEENT: No difficulty swallowing, eye injury, eye surgery, swollen glands or hoarseness Endo Endocrine: No thyroid disease, diabetes mellitus, thyroid cancer, Hair loss, heat intolerance or cold intolerance Skin Skin: No rash or changing moles Musc Musculoskeletal: No back problems, arthritis, rheumatoid arthritis, gout or joint pain Cardio Cardiovascular: No murmur, pacemaker, heart disease, atrial fibrillation, high blood pressure, heart attack, heart stent, palpitations, shortness of breath with exertion or chest pain Psych Psychiatric: No depression, anxiety or hearing voices Resp Respiratory: No shortness of breath, No sleep apnea, No cough, No COPD, No asthma, No emphysema and No wheezing Gastro Gastrointestinal: No abdominal pain, No nausea or vomiting, No diarrhea, No constipation, No blood in stool, No acid reflux, No hemorrhoids, No ulcers, No gallbladder problem and No black,tarry stools Flip Hematologic: Yes blood thinners, No blood disorders, No bleeding, No anemia and No blood clots Additional Details: ASA Neuro Neurologic: No system reviewed and no additional complaints, except as documented, No as per HPI, No abnormal gait, No abnormal hearing, No abnormal movements, No abnormal speech, No behavioral changes, No burning sensations, No confusion, No convulsions, No disequilibrium, No dizziness, No localized weakness, No frequent falls, No headache(s), No lack of coordination, No loss of vision, No memory loss, No numbness, No other visual disturbances, No radicular pain, No restless legs, No sensory deficit, No syncope, No tingling, No tremor(s), No weakness and No other Exam Const General: cooperative, comfortable and no acute distress Orientation: alert, awake and oriented x3 HENMT Head: normocephalic and atraumatic Ears: hearing grossly normal bilaterally and external ears normal Nose: external nose nor (more content not included)... Normal [facility] Venous duplex ultrasound rep ortOrdered By: Dangelo Rome on 12-27-2024 US Vein [facility] [address] [place] [address] Venous Duplex US, Unilateral 12/26/24 1400 MR#: [id number] Acct: [id number] Name: ANTHONY CAMARGO Rep #:[id number] : 1990 34 From: Dangelo Haney Attending Dr: SAVANAH Gillette Stat us: REG CLI Ordering Dr: Griselda Majano Date: Location: CVS Sex: F C Admitted: Reason For Study Reason For Study: Left leg pain RIGHT LEFT CFV is compressible, spontaneous, phasic, competent CFV is compressible, spontaneous, phasic, competent, and demonstrates normal augmentation. and demonstrates normal augmentation. Procedure FV is compressible, spontaneous, phasic, competent This is a venous duplex using B-mode, color flow and and demonstrates normal augmentation. spectral Doppler. POP V is compressible, spontaneous, phasic, competent Exam performed in department. and demonstrates normal augmentation. T/P Trunk is compressible. PTV is compressible. LT PerV is compressible. GSV from junction to prox calf is occluded s/p Venaseal. GSV mid-distalcalf is compressible. Thrombus filled varicose vein noted at the proximal calf at area of ligation. VL/Venous Duplex US, Unilateral Interpretation Summary Deep veins of the left lower extremity are patent and compressible segmentally. There is no evidence of left lower extremity deep vein thrombosis. Left great saphenous vein and calf varicosities occluded consistent with recent ablation. Ordering Physician: Griselda Majano Referring Physician: Derrick Cisneros Performed By: Willinger, Peggy, RVT 12/27/24954 Date _ Dangelo Rome MD CC: SAVANAH Gillette; Dr. Derrick Cisneros MD ~ Date Dictated: 12/26/24 1400 Date Transcribed: 12/27/24954 Specialist Managers: Signed [facility] Work Phone: Venous Duplex US, Unilateral on 12-26-2024 Venous Duplex US, Unilateral [facility] [address] [place] [address] Venous Duplex US, Unilateral 12/26/24 1400 MR#: [id number] Acct: [id number] Name: ANTHONY CAMARGO Rep #: [id number] : 1990 34 From: Dangelo Rome MD Attending Dr: SAVANAH Gillette Status: REG CLI Ordering Dr: Griselda Majano Date: 12/26/24 Location: CVS Sex: F C Admitted: Reason For Study Reason For Study: Left leg pain RIGHT LEFT CFV is compressible, spontaneous, phasic, competent CFV is compressible, spontaneous, phasic, competent, and demonstrates normal augmentation. and demonstrates normal augmentation. Procedure FV is compressible, spontaneous, phasic, competent This is a venous duplex using B-mode, color flow and and demonstrates normal augmentation. spectral Doppler. POP V is compressible, spontaneous, phasic, competent Exam performed in department. and demonstrates normal augmentation. T/P Trunk is compressible. PTV is compressible. LT PerV is compressible. GSV from junction to prox calf is occluded s/p Venaseal. GSV mid-distal calf is compressible. Thrombus filled varicose vein noted at the proximal calf at area of ligation. VL/Venous Duplex US, Unilateral Interpretation Summary Deep veins of the left lower extremity are patent and compressible segmentally. There is no evidence of left lower extremity deep vein thrombosis. Left great saphenous vein and calf varicosities occluded consistent with recent ablation. Ordering Physician: Griselda Majano Referring Physician: Derrick Cisneros Performed By: Peggy Whitlock, T 12/27/24954 Date Dangelo Rome MD CC: SAVANAH Gillette; Dr. Derrick Cisneros MD Date Dictated: 12/26/24 1400 Date Transcribed: 12/27/24954 Specialist Managers: Signed Normal [facility] Anion gap in Serum or Plasma Ordered By: Dangelo Rome on 12-22-2024 Anion gap [Moles/Vol] 9 mmol/L 5-15 [facility] BUN/creatinine ratioOrdered By: Dangelo Rome on 12-22-2024 Urea nitrogen/Creatinine [Mass ratio] 19.9 mg/mg 10- [facility] Basic Metabolic Profile (BMP )on 12-22-2024 BUN/CRE 19.9 RATIO Normal - [facility] Comment on above: Performed By: #### L 100.0500, L500.2500 #### [facility] Laboratory [address] [place], [address] Calcium [Mass/Vol] 9.0 mg/dL Normal 7.6-11.0 [facility] Comment on above: Performed By: #### L 100.0500, L500.2500 #### [facility] [address] [place], [address] Chloride [Moles/Vol] 105 mmol/L Normal 98-108 [facility] Comment on above: Performed By: #### L 100.0500, L500.2500 #### [facility] [address] [place], [address] CO2 [Moles/Vol] 25.2 mmol/L Normal 21.0-32.0 [facility] Comment on above: Performed By: #### L 100.0500, L500.2500 #### [facility] [address] [place], [address] Creatinine [Mass/Vol] 0.86 mg/dL Normal 0.70-1.20 [facility] Comment on above: Performed By: #### L 100.0500, L500.2500 #### [facility] [address] [place], [address] ECRCL 97.24 ml/min Normal 50-250 [facility] Comment on above: Performed By: #### L 100.0500, L500.2500 #### [facility] [address] [place], [address] GAP 9 Normal 5-15 [facility] Comment on above: Performed By: #### L 100.0500, L500.2500 #### [facility] [address] [place], [address] GFR/1.73 sq M.predicted among non-blacks MDRD (S/P/Bld) [Vol rate/Area] 92 mL/min/{1.73_m2} Normal >60 [facility] Comment on above: Result Comment: mL/m in/1.73m2 CKD-EPI Creatinine Equation (2020) Performed By: #### L 100.0500, L500.2500 #### [facility] [address] [place], [address] Glucose [Mass/Vol] 100 mg/dL High 70-99 [facility] Comment on above: Performed By: #### L 100.0500, L500.2500 #### [facility] [address] [place], [address] Potassium [Moles/Vol] 4.7 mmol/L Normal 3.3-5.1 [facility] Comment on above: Performed By: #### L 100.0500, L500.2500 #### [facility] [address] [place], [address] Sodium [Moles/Vol] 139 mmol/L Normal 133-145 [facility] Comment on above: Performed By: #### L 100.0500, L500.2500 #### [facility] [address] [place], [address] Urea nitrogen [Mass/Vol] 17 mg/dL Normal 4-19 [facility] Comment on above: Performed By: #### L 100.0500, L500.2500 #### [facility] [address] [place], [address] CBC[facility] Erythrocyte distribution width (RBC) [Ratio] 12.2 % Normal 11.6-14.6 [facility] Comment on above: Performed By: #### L 100.0500, L500.2500 #### [facility] [address] [place], [address] Hematocrit (Bld) [Volume fraction] 42.7 % Normal 37-47 [facility] Comment on above: Performed By: #### L 100.0500, L500.2500 #### [facility] [address] [place], [address] Hemoglobin (Bld) [Mass/Vol] 15.1 g/dL High 12.0-15.0 [facility] Comment on above: Performed By: #### L 100.0500, L500.2500 #### [facility] [address] [place], [address] MCH (RBC) [Entitic mass] 29.8 pg Normal 27.0-32.0 [facility] Comment on above: Performed By: #### L 100.0500, L500.2500 #### [facility] [address] [place], [address] MCHC (RBC) [Mass/Vol] 35.4 g/dL Normal 32-36 [facility] Comment on above: Performed By: #### L 100.0500, L500.2500 #### [facility] [address] [place], [address] MCV (RBC) [Entitic vol] 84.4 fL Normal 81-99 [facility] Comment on above: Performed By: #### L 100.0500, L500.2500 #### [facility] [address] [place], [address] Platelet mean volume (Bld) [Entitic vol] 9.6 fL Normal 6.2-12.0 [facility] Comment on above: Performed By: #### L 100.0500, L500.2500 #### [facility] [address] [place], [address] Platelets (Bld) [#/Vol] 229 10*3/uL Normal 150-450 [facility] Comment on above: Performed By: #### L 100.0500, L500.2500 #### [facility] [address] [place], [address] RBC (Bld) [#/Vol] 5.06 10*6/uL Normal 4.2-5.4 [facility] Comment on above: Performed By: #### L 100.0500, L500.2500 #### [facility] [address] [place], [address] RDW SD 37.0 fl Normal 35.1-43.9 [facility] Comment on above: Performed By: #### L 100.0500, L500.2500 #### [facility] [address] [place], [address] WBC (Bld) [#/Vol] 4.8 10*3/uL Normal 4.4-11.0 [facility] Comment on above: Performed By: #### L 100.0500, L500.2500 #### [facility] [address] [place], [place], [address] Carbon dioxide, total [Moles /volume] in Central venous bloodOrdered By: Dangelo Rome on 12-22-2024 CO2 [Moles/Vol] 25.2 mmol/L 21.0-32.0 [facility] Chloride assayOrdered By: Juan Pablo Rome on 12-22-2024 Chloride [Moles/Vol] 105 mmol/L 98-108 [facility] Erythrocyte distribution wid th ratioOrdered By: Dangelo Rome on 12-22-2024 Erythrocyte distribution width (RBC) [Ratio] 12.2 % 11.6-14.6 [facility] Erythrocyte distribution wid th standard deviationOrdered By: Dangelo Rome on 12-22-2024 Erythrocyte distribution width (RBC) [Entitic vol] 37.0 fL 35.1-43.9 [facility] Estimation of creatinine esther aranceOrdered By: Dangelo Rome on 12-22-2024 Estimated Creatinine Clearance Calc 97.24 ml/min 50-250 [facility] GFR/1.73 sq M.predicted harman g non-blacks MDRD (S/P/Bld) [Vol rate/Area]Ordered By: Dangelo Rome on 12-22-2024 Estimated GFR (MDRD) Non-Af Amer 92 >60 [facility] Comment on above: mL/min/1.73m2 CKD-EP I Creatinine Equation (2020) Hematocrit Auto (Bld) [Volum e fraction]Ordered By: Dangelo Rome on 12-22-2024 Hematocrit (Bld) [Volume fraction] 42.7 % 37-47 [facility] Hemoglobin measurementOrdere d By: Dangelo Rome on 12-22-2024 Hemoglobin (Bld) [Mass/Vol] 15.1 g/dL High 12.0-15.0 [facility] MCV (mean corpuscular volume ) determinationOrdered By: Dangelo Rome on 12-22-2024 MCV (RBC) [Entitic vol] 84.4 fL 81-99 [facility] Mean corpuscular hemoglobin (MCH) determinationOrdered By: Dangelo Rome on 12-22-2024 MCH (RBC) [Entitic mass] 29.8 pg 27.0-32.0 [facility] Mean corpuscular hemoglobin concentration (MCHC) determinationOrdered By: Dangelo Rome on 12-22-2024 MCHC (RBC) [Mass/Vol] 35.4 g/dL 32-36 [facility] Mean platelet volume determi nationOrdered By: Dangelo Rome on 12-22-2024 Platelet mean volume (Bld) [Entitic vol] 9.6 fL 6.2-12.0 [facility] Operative Reporton 5 Operative Report [facility] Medical Records Department [address] [place] [address] Operative Report 12/22/24 1700 MR#: [id number] Acct: [id number] Name: ANTHONY CAMARGO Rep #: [id number] : 1990 34 From: Dangelo Rome MD PCP: Dr. Derrick Cisneros MD Status:[facility] Location: [facility] Operative Report (Standard) Operative Information Date of Procedure: 12/22/24 Pre-Operative Diagnosis: Varicose veins with pain of the left lower extremity Post-Operative Diagnosis: Same Surgery/Procedure Performed: Chemical ablation of left great saphenous vein Stab phlebectomy varicose vein cluster via single incision, left lower extremity social service manager: No Type of Anesthesia: Local and Sedation,Conscious Procedure Start Time: 10:00 Procedure Stop Time: 11:00 Select all DRAINS/GRAFTS/IMPLANTS that apply: None Estimated Blood Loss: 3 Specimen collected: No Description of surgery: HPI: Patient is a 34-year-old female with left lower extremity painful varicose veins which been refractory to compression therapy. She had venous duplex imaging which revealed reflux in the great saphenous vein from the saphenofemoral junction to the proximal calf with the symptomatic varicosities emanating from the saphenous at this location. Inferior to the confluence of the varicosities with the saphenous vein the vessel is very small in caliber so it was not expected that we would be able to successfully chemically ablate the origins of the saphenous varicosities along with the great saphenous treatment zone. So she is taken now for chemical ablation of the great saphenous vein with planned ligation and phlebectomy of the varicosities. Description of procedure: Upon obtaining form consent and verification correct patient procedure site patient taken to the Sql Data Analyst where she was positioned prepped and draped in usual sterile fashion. Time was then performed conscious sedation administered Versed and fentanyl. The great saphenous vein was evaluated ultrasound and found to be patent and continuous from the saphenofemoral junction down to the proximal calf. In the proximal calf there is a large varicosity cluster confluence and inferior to this the great saphenous vein was very small in caliber and too small to access. From the varicosity confluence and cephalad the vessel was of satisfactory caliber to access ablated. In order to maximize the length of treatment zone feasible with chemical ablation we decided to directly access at the confluence of the varicosity with the great saphenous vein. Skin overlying the vessel at this location was anesthetized 1% lidocaine and the vessel attempted be accessed under ultrasound guidance with a micropuncture needle wire. The vessel was very shallow and prior to spasm so after unsuccessful attempts we decided to create our stab phlebectomy incision with an 11 blade in transverse orientation. The great saphenous vein and varicosity confluence was then grasped and retracted into the incision. The micropuncture needle and wire were then used to directly access the vessel at this location and advanced under ultrasound guidance. The needle was then exchanged for the 7 [place] ablation sheath which was advanced without resistance. Through the 7 [place] sheath a angled glide wire was advanced under ultrasound guidance traversing the saphenous vein up to the saphenofemoral junction. The glue delivery guide was then advanced over the wire and positioned 5 cm inferior to the saphenofemoral junction. Through the guide to the glue delivery catheter was advanced in position appropriate distance 5 cm inferior to the saphenofemoral junction. Glue was then deposited along the great saphenous vein to the access sheath. The guide and catheter then withdrawn followed by their sheath removal and the saphenous vein at the access site clamped. Varicosities at this location were then extracted from the wound and the ends of the great saphenous vein and varicosities ligated with silk ties. Incision was then closed with Dermabond and dry sterile dressings and Tonny wrap supplied. The patient was then taken to the recovery area with plan discharged home. Surgical Findings: See above Complications Complications: No 12/22/24 1707 Cosigner Signature (if applicable): CC: Dr. Derrick Cisneros MD; Dr. Dangelo Rome MD Signed Normal [facility] Platelet countOrdered By: Juan Pablo Rome on 12-22-2024 Platelets (Bld) [#/Vol] 229 10*3/uL 150-450 [facility] Potassium (Unsp spec) [Mass/ Vol]Ordered By: Dangelo Rome on 12-22-2024 Potassium [Moles/Vol] 4.7 mmol/L 3.3-5.1 [facility] RBC Auto (Bld) [#/Vol]Ordere d By: Dangelo Rome on 12-22-2024 RBC (Bld) [#/Vol] 5.06 10*6/uL 4.2-5.4 [facility] Serum creatinine measurement (mass/volume)Ordered By: Dangelo Rome on 12-22-2024 Creatinine [Mass/Vol] 0.86 mg/dL 0.70-1.20 [facility] Serum glucose measurement (m ass/volume)Ordered By: Dangelo Rome on 12-22-2024 Glucose [Mass/Vol] 100 mg/dL High 70-99 [facility] Serum or plasma calcium emmanuel urement (mass/volume)Ordered By: Dangelo Rome on 12-22-2024 Calcium [Mass/Vol] 9.0 mg/dL 7.6-11.0 [facility] Serum or plasma urea nitroge n measurement (mass/volume)Ordered By: Dangelo Rome on 12-22-2024 Urea nitrogen [Mass/Vol] 17 mg/dL 4-19 [facility] Sodium levelOrdered By: Dangelo Rome on 12-22-2024 Sodium [Moles/Vol] 139 mmol/L 133-145 [facility] White blood cell (WBC) count Ordered By: Dangelo Rome on 12-22-2024 WBC (Bld) [#/Vol] 4.8 10*3/uL 4.4-11.0 [facility] Pelvic w/ Transvaginalon Pelvic w/ Transvaginal [facility] [address] [place] [address] Pelvic w/ Transvaginal MR#: [id number] Acct: [id number] Name: ANTHONY CAMARGO Rep #: [id number] : 1990 F 34 From: Kayla mendez MD PCP: Dr. Derrick Cisneros MD Status: REG CLI Study: Pelvic w/ Transvaginal Date of Exam: 08/13/24 Exam# [id number] Ordering Dr: Jennifer Hampton DO [id number] HISTORY: right lower quadrant pain. TECHNIQUE: Transabdominal and transvaginal pelvic ultrasound was performed with ace scale , spectral Doppler, and color Doppler evaluation. 130 images. COMPARISON: None. FINDINGS: UTERUS: 8.9 x 4.1 x 5.2 cm. Anteverted. ENDOMETRIAL THICKNESS: 6 mm. Tampon incidentally noted in the vagina. RIGHT OVARY: 1.7 x 2.2 x 2.7 cm. Vascular flow demonstrated. No adnexal masses. LEFT OVARY: 1.5 x1.9 x 3.4 cm with a 1.1 cm dominant follicle. Vascular flow demonstrated. No adnexal masses. FREE FLUID: Trace. URINARY BLADDER: Well-distended at 397 cc. US/Pelvic w/ Transvaginal IMPRESSION: Unremarkable pelvic ultrasound. Electronically Signed: Kayla Arce MD at 15:10 EST , CC: Dr. Derrick Cisneros MD; Dr. Jennifer Hampton DO Specialist Managers: Signed Normal [facility] Lay Out Carpenter Office Visit Reporton 08-02-2024 Lay Out Carpenter Office Visit Report [facility] [address], [address] [place] [address] OFFICE VISIT Date of Service: 08/02/24 MR#: [id number] Acct: [id number] Name: ANTHONY CAMARGO Rep #: [id number] : 1990 Provider: Dr. Jennifer Banerjee DO Age/Sex: 34/F Location: [facility] Status: Signed Intake Vital Signs 03/12/23 07:20 08/02/24 14:12 08/02/24 14:12 Height 5 ft 9 in 5 ft 9 in 5 ft 9 in Weight: 169 lb 6 oz BMI 25.0 BP 130/82 H Intake Visit Reasons: Annual (DATASTAGE ARCHITECT) Physician Underwriter Required: No Is patient in pain?: No Allergies No Known Allergies Allergy (Verified 08/02/24 14:12) Medications ???Medication ???Instructions ???Recorded ???Confirmed ???Type multivitamin 1 tab PO DAILY 08/01/22 08/02/24 History cholecalciferol (vitamin D3) 50 50 mcg PO DAILY 11/27/22 08/02/24 History mcg (2,000 unit) capsule aspirin 81 mg tablet,delayed 81 mg PO DAILY 04/02/23 08/02/24 History release Post menopausal: No Patient : No : No PFSH Medical History (Updated 08/02/24 @ 14:[address] Jennifer Hampton DO) May-Thurner syndrome Surgical History (Updated 08/02/24 @ 14:23 by Any Bustamante) S/P insertion of iliac artery stent Family History Mother Breast cancer Social History (Updated 08/02/24 @ 14:23 by Any Bustamante) Smoking Status: Never smoker alcohol intake: never substance use type: does not use caffeine: Yes what type of physical activity do you participate in: running and weight training frequency: 5-6 times per week seatbelt use: always do you feel safe at home: Yes additional social history: - Blade History 2 Elective abortions Hx Para 2 Spontaneous abortions Hx # Term Pregnancies Ectopic pregnancies Hx # Pregnancies Multiple births # of living children Past Pregnancies Del. Date Name GA/Weeks Outcome Route Bth Weight Infant Gen Labor Lgth Anesthesia Del Locatn Provider FOB Unknown Jody Unknown Anoop HPI Encounter for routine gynecological examination Details: ANTHONY CAMARGO is a 34 year old who presents for annual exam. has the complaint of right lower quadrant pain. Last PAP: 07/2022- normal History of abnormal PAP: no Last mammogram: n/a History of abnormal mammogram: n/a- mom had breast ca ae 48. Colon cancer screening: n/a Other preventative health care screenings: follwed by pcp [facility] [address]. Female Reproductive History Cycle Length: 21-35 Bleeding Duration: 5 Questions: metorrhagia: No, sexually active: Yes, dyspareunia: No and PCB: No Menopausal Symptoms: No hot flashes, No night sweats, No weight change, No mood changes, No difficulty concentrating, No sleep problems and No change in libido ROS Const Constitutional: Reports as per HPI; Denies fatigue, increased appetite, poor appetite, night sweats, weight gain or weight loss Cardio Card: Denies chest pain Resp Resp: Denies cough or dyspnea GI GI: Reports as per HPI; Denies abdominal pain, bloating, constipation, nausea or vomiting : Reports as per HPI and other; Denies difficulty voiding, dysuria, hematuria, hot flashes, nipple discharge, pelvic pain, prolapse symptoms, urinary frequency, urinary incontinence, urinary urgency, vaginal discharge, vaginal dryness, vaginal odor or vaginal pruritus Skin Skin/Breast: Denies changing lesions, breast mass, breast pain, breast skin changes or nipple discharge Psych Psych: Denies anxiety, change in libido, depression or difficulty concentrating Exam Const General: cooperative, healthy appearing, comfortable, no acute distress, well developed and well groomed HENVA Head: normal to inspection and normocephalic Ears: hearing grossly normal bilaterally and external ears normal Nose: external nose normal Face and sinus: normal facial exam Neck Neck: normal visual inspection, full ROM and no lymphadenopathy Thyroid: thyroid normal Chest Chest palpation inspection: normal inspection of the chest Breast inspection: normal inspection of the breasts and normal inspection of the axillae Breast palpation: normal palpation of the breasts, normal palpation of the axillae and no axillary lymphadenopathy Resp Effort Inspection: normal respiratory effort GI Inspection: normal to inspection and non-distended Palpation: soft, no hepatosplenomegaly and no guarding General: bladder normal to palpation External Female Exam: normal external appearance, normal appearance of the urethra and no lesions Urethra: normal appearance of the urethra and normal palpation Speculum Exam - Vagina: normal appearance of the vagina and normal vaginal discharge Speculum Exam - Cervix: normal appearance of the c (more content not included)... Normal [facility] CBC W/Diff, Automatedon 05-30-2023 Absolute Lymph 1.77 X10 3/uL Normal 0.83-4.51 [facility] Comment on above: Performed By: #### L 501.9985, L100.0100, L506.1000, L500.4100, L500.4050 #### [facility] [address] [place], [address] Absolute Neut 3.7 X10 3/uL Normal 2.0-7.7 [facility] Comment on above: Performed By: #### L 501.9985, L100.0100, L506.1000, L500.4100, L500.4050 #### [facility] [address] [place], [address] Basophils/100 WBC (Bld) 0.5 % Normal 0-1 [facility] Comment on above: Performed By: #### L 501.9985, L100.0100, L506.1000, L500.4100, L500.4050 #### [facility] [address] [place], [address] Eosinophils/100 WBC (Bld) 1.5 % Normal 0-5 [facility] Comment on above: Performed By: #### L 501.9985, L100.0100, L506.1000, L500.4100, L500.4050 #### [facility] [address] [place], [address] Erythrocyte distribution width (RBC) [Ratio] 11.8 % Normal 11.6-14.6 [facility] Comment on above: Performed By: #### L 501.9985, L100.0100, L506.1000, L500.4100, L500.4050 #### [facility] [address] [place], [address] Hematocrit (Bld) [Volume fraction] 44.6 % Normal 37-47 [facility] Comment on above: Performed By: #### L 501.9985, L100.0100, L506.1000, L500.4100, L500.4050 #### [facility] [address] [place], [address] Hemoglobin (Bld) [Mass/Vol] 14.7 g/dL Normal 12.0-15.0 [facility] Comment on above: Performed By: #### L 501.9985, L100.0100, L506.1000, L500.4100, L500.4050 #### [facility] [address] [place], [address] IG% 0.500 Normal 0.0-0.9 [facility] Comment on above: Result Comment: IG% - Immature Granulocytes (promyelocytes, myelocytes and metamyelocytes) > 1% indicates that a LEFT SHIFT is Present. Performed By: #### L 501.9985, L100.0100, L506.1000, L500.4100, L500.4050 #### [facility] [address] [place], [address] Lymphocytes/100 WBC (Bld) 29.3 % Normal 19-41 [facility] Comment on above: Performed By: #### L 501.9985, L100.0100, L506.1000, L500.4100, L500.4050 #### [facility] [address] [place], [address] MCH (RBC) [Entitic mass] 28.7 pg Normal 27.0-32.0 [facility] Comment on above: Performed By: #### L 501.9985, L100.0100, L506.1000, L500.4100, L500.4050 #### [facility] [address] [place], [address] MCHC (RBC) [Mass/Vol] 33.0 g/dL Normal 32-36 [facility] Comment on above: Performed By: #### L 501.9985, L100.0100, L506.1000, L500.4100, L500.4050 #### [facility] [address] [place], [address] MCV (RBC) [Entitic vol] 87.1 fL Normal 81-99 [facility] Comment on above: Performed By: #### L 501.9985, L100.0100, L506.1000, L500.4100, L500.4050 #### [facility] [address] [place], [address] Monocytes/100 WBC (Bld) 7.5 % Normal 0-10 [facility] Comment on above: Performed By: #### L 501.9985, L100.0100, L506.1000, L500.4100, L500.4050 #### [facility] [address] [place], [address] Neutrophils/100 WBC (Bld) 60.7 % Normal 47-70 [facility] Comment on above: Performed By: #### L 501.9985, L100.0100, L506.1000, L500.4100, L500.4050 #### [facility] [address] [place], [address] Nucleated RBC (Bld) [#/Vol] 0 10*3/uL Normal 0-5 [facility] Comment on above: Performed By: #### L 501.9985, L100.0100, L506.1000, L500.4100, L500.4050 #### [facility] [address] [place], [address] Platelet mean volume (Bld) [Entitic vol] 9.8 fL Normal 6.2-12.0 [facility] Comment on above: Performed By: #### L 501.9985, L100.0100, L506.1000, L500.4100, L500.4050 #### [facility] [address] [place], [address] Platelets (Bld) [#/Vol] 281 10*3/uL Normal 150-450 [facility] Comment on above: Performed By: #### L 501.9985, L100.0100, L506.1000, L500.4100, L500.4050 #### [facility] [address] [place], [address] RBC (Bld) [#/Vol] 5.12 10*6/uL Normal 4.2-5.4 [facility] Comment on above: Performed By: #### L 501.9985, L100.0100, L506.1000, L500.4100, L500.4050 #### [facility] [address] [place], [address] RDW SD 37.5 fl Normal 35.1-43.9 [facility] Comment on above: Performed By: #### L 501.9985, L100.0100, L506.1000, L500.4100, L500.4050 #### [facility] [address] [place], [address] WBC (Bld) [#/Vol] 6.0 10*3/uL Normal 4.4-11.0 [facility] Comment on above: Performed By: #### L 501.9985, L100.0100, L506.1000, L500.4100, L500.4050 #### [facility] [address] [place], [address] Comprehensive Metabolic Prof [facility] 06-22-2024 Albumin [Mass/Vol] 3.9 g/dL Normal 3.2-5.0 [facility] Comment on above: Performed By: #### L 501.9985, L100.0100, L506.1000, L500.4100, L500.4050 #### [facility] [address] [place], [address] Albumin/Globulin [Mass ratio] 1.0 {ratio} Normal 0.9-2.4 [facility] Comment on above: Performed By: #### L 501.9985, L100.0100, L506.1000, L500.4100, L500.4050 #### [facility] [address] [place], [address] ALK P 49 U/L Normal 45-117 [facility] Comment on above: Performed By: #### L 501.9985, L100.0100, L506.1000, L500.4100, L500.4050 #### [facility] [address] [place], [address] ALT [Catalytic activity/Vol] 16 U/L Normal 13-56 [facility] Comment on above: Performed By: #### L 501.9985, L100.0100, L506.1000, L500.4100, L500.4050 #### [facility] [address] [place], [address] AST [Catalytic activity/Vol] 11 U/L Low 15-37 [facility] Comment on above: Performed By: #### L 501.9985, L100.0100, L506.1000, L500.4100, L500.4050 #### [facility] [address] [place], [address] Bilirubin [Mass/Vol] 0.60 mg/dL Normal 0.20-1.00 [facility] Comment on above: Result Comment: For patients on eltrombopag therapy, use of Dimension [place] TBIL is not recommended. Performed By: #### L 501.9985, L100.0100, L506.1000, L500.4100, L500.4050 #### [facility] [address] [place], [address] BUN/CRE 13.1 RATIO Normal 10-20 [facility] Comment on above: Performed By: #### L 501.9985, L100.0100, L506.1000, L500.4100, L500.4050 #### [facility] [address] [place], [address] CA,Total 9.4 mg/dL Normal 8.5-10.1 [facility] Comment on above: Performed By: #### L 501.9985, L100.0100, L506.1000, L500.4100, L500.4050 #### [facility] [address] [place], [address] Chloride [Moles/Vol] 104 mmol/L Normal 98-107 [facility] Comment on above: Performed By: #### L 501.9985, L100.0100, L506.1000, L500.4100, L500.4050 #### [facility] [address] [place], [address] CO2 [Moles/Vol] 31.0 mmol/L Normal 21.0-32.0 [facility] Comment on above: Performed By: #### L 501.9985, L100.0100, L506.1000, L500.4100, L500.4050 #### [facility] [address] [place], [address] Creatinine [Mass/Vol] 0.84 mg/dL Normal 0.55-1.02 [facility] Comment on above: Result Comment: The validity of the calculated GFR GFRAA in patients over 70 years has not been determined. Clinical correlation is essential. Performed By: #### L 501.9985, L100.0100, L506.1000, L500.4100, L500.4050 #### [facility] [address] [place], [address] EST GFR - AA 101 mL/min Normal >60 [facility] Comment on above: Result Comment: Afri can [place]raini GFR Calc Performed By: #### L 501.9985, L100.0100, L506.1000, L500.4100, L500.4050 #### [facility] [address] [place], [address] GAP 2 Low 5-15 [facility] Comment on above: Performed By: #### L 501.9985, L100.0100, L506.1000, L500.4100, L500.4050 #### [facility] [address] [place], [address] GFR/1.73 sq M.predicted among non-blacks MDRD (S/P/Bld) [Vol rate/Area] 83 mL/min/{1.73_m2} Normal >60 [facility] Comment on above: Result Comment: Non- GFR Calc Performed By: #### L 501.9985, L100.0100, L506.1000, L500.4100, L500.4050 #### [facility] [address] [place], [address] Globulin (S) [Mass/Vol] 3.8 g/dL Normal 2.2-4.2 [facility] Comment on above: Performed By: #### L 501.9985, L100.0100, L506.1000, L500.4100, L500.4050 #### [facility] [address] [place], [address] Glucose [Mass/Vol] 95 mg/dL Normal 74-106 [facility] Comment on above: Performed By: #### L 501.9985, L100.0100, L506.1000, L500.4100, L500.4050 #### [facility] [address] [place], [address] Potassium [Moles/Vol] 4.5 mmol/L Normal 3.5-5.1 [facility] Comment on above: Performed By: #### L 501.9985, L100.0100, L506.1000, L500.4100, L500.4050 #### [facility] [address] [place], [address] Sodium [Moles/Vol] 137 mmol/L Normal 136-145 [facility] Comment on above: Performed By: #### L 501.9985, L100.0100, L506.1000, L500.4100, L500.4050 #### [facility] [address] [place], [address] T PROT 7.7 g/dL Normal 6.4-8.2 [facility] Comment on above: Performed By: #### L 501.9985, L100.0100, L506.1000, L500.4100, L500.4050 #### [facility] [address] [place], [address] Urea nitrogen [Mass/Vol] 11 mg/dL Normal 7-18 [facility] Comment on above: Performed By: #### L 501.9985, L100.0100, L506.1000, L500.4100, L500.4050 #### [facility] [address] [place], [address] Hemoglobin A1con 06-22-2024 HbA1c (Bld) [Mass fraction] 5.0 % Normal 3.8-5.6 [facility] Comment on above: Result Comment: Norm al < 5.7 % Prediabetic 5.7 - 6.4 % Diabetic >or= 6.5 % Please note range changes. Performed By: #### L 501.9985, L100.0100, L506.1000, L500.4100, L500.4050 #### [facility] [address] [place], [address] Lipid Profileon 06-22-2024 Cholesterol [Mass/Vol] 172 mg/dL Normal 200 [facility] Comment on above: Result Comment: <200 mg/dL Desirable 200-240 mg/dL Borderline >240 mg/dL High Risk Performed By: #### L 501.9985, L100.0100, L506.1000, L500.4100, L500.4050 #### [facility] [address] [place], [address] Cholesterol in HDL [Mass/Vol] 47 mg/dL Normal [facility] Comment on above: Result Comment: The drugs N-Acetylcysteine and Metamizole may falsely depress this assay. Reference Range HDL <40 mg/dL Low HDL Cholesterol HDL >or= 60 mg/dL High HDL Cholesterol Performed By: #### L 501.9985, L100.0100, L506.1000, L500.4100, L500.4050 #### [facility] [address] [place], [address] Cholesterol in LDL [Mass/Vol] 107 mg/dL Normal 0-130 [facility] Comment on above: Performed By: #### L 501.9985, L100.0100, L506.1000, L500.4100, L500.4050 #### [facility] [address] [place], [address] Cholesterol in VLDL [Mass/Vol] 18 mg/dL Normal 5-40 [facility] Comment on above: Performed By: #### L 501.9985, L100.0100, L506.1000, L500.4100, L500.4050 #### [facility] [address] [place], [address] Triglyceride [Mass/Vol] 88 mg/dL Normal [facility] Comment on above: Result Comment: The drugs N-Acetylcysteine and Metamizole may falsely depress this assay. Serum Triglycerides Reference Interval Normal <150 mg/dL Borderline high 150 - 199 mg/dL High 200 - 499 mg/dL Very High > or = 500 mg/dL Performed By: #### L 501.9985, L100.0100, L506.1000, L500.4100, L500.4050 #### [facility] [address] [place], [place], [address] Vitamin D,25 Hydroxyon 06-22 Vitamin D 25-OH 55.2 ng/mL Normal [facility] [facility] Comment on above: Result Comment: Elena min D 25(OH) Status Range Deficiency <20 ng/mL (50nmol/L) Insufficiency 20 - 30 ng/mL (50 - 75 nmol/L) Sufficiency 30 - 100 ng/mL (75 - 250 nmol/L) Toxicity >100 ng/mL (>250 nmol/L) Performed By: #### L 501.9985, L100.0100, L506.1000, L500.4100, L500.4050 #### [facility] [address] [place], [place], [address] MR/BMSTracyJarrod 06-09-2024 /BMS.[facility] Vascular Surgery [address] [place], [place] [address] OFFICE VISIT Date of Service: 06/09/24 MR#: [id number] Acct: [id number] Name: ANTHONY CAMARGO Rep #: [id number] : 1990 Provider: Dr. Dangelo Rome MD Age/Sex: 34/F Location: [facility] Status: Signed Intake Vital Signs 03/12/23 07:20 06/09/24 13:27 Height 5 ft 9 in Weight: 167 lb BP 123/78 H Blood Pressure Location Rt brachial Position Sitting Respiration 14 Pulse 76 Pulse Source Monitor Temp 98 F Temp Source Temporal Pulse Oximetry (%) 100 Oxygen Delivery Method room air Intake Visit Reasons: POSSSIBLE VASCULAR ULTRASOUND Is patient in pain?: No Allergies No Known Allergies Allergy (Verified 03/29/24 09:33) Medications ???Medication ???Instructions ???Recorded ???Confirmed ???Type multivitamin 1 tab PO DAILY 08/01/22 06/09/24 History cholecalciferol (vitamin D3) 50 50 mcg PO DAILY 11/27/22 06/09/24 History mcg (2,000 unit) capsule aspirin 81 mg tablet,delayed 81 mg PO DAILY 04/02/23 06/09/24 History release Is last menstrual period known: Yes Post menopausal: No Patient : No Have you fallen in the past year?: No PFSH Family History Mother Breast cancer Social History Smoking Status: Never smoker alcohol intake: never substance use type: does not use caffeine: Yes what type of physical activity do you participate in: running frequency: 3-4 times per week seatbelt use: always do you feel safe at home: Yes additional social history: - Blade HPI HPI HPI: ANTHONY CAMARGO, is a 34 F who presents to the office today for follow up of painful varicose veins in right medial thigh/calf. She has consistently worn compression stockings with limited relief. She previously underwent iliac vein stenting for compression which resolved some of symptoms in leg and improved but did not resolve varicose vein pain. ROS General General: No weight change, appetite, fatigue, colon cancer, breast cancer or weakness HEENT HEENT: No difficulty swallowing, eye injury, eye surgery, swollen glands or hoarseness Endo Endocrine: No thyroid disease, diabetes mellitus, thyroid cancer, Hair loss, heat intolerance or cold intolerance Skin Skin: No rash or changing moles Musc Musculoskeletal: No back problems, arthritis, rheumatoid arthritis, gout or joint pain Cardio Cardiovascular: No murmur, pacemaker, heart disease, atrial fibrillation, high blood pressure, heart attack, heart stent, palpitations, shortness of breat with exertion or chest pain Psych Psychiatric: No depression, anxiety or hearing voices Resp Respiratory: No shortness of breath, No sleep apnea, No cough, No COPD, No asthma, No emphysema and No wheezing Gastro Gastrointestinal: No abdominal pain, No nausea or vomiting, No diarrhea, No constipation, No blood in stool, No acid reflux, No hemorrhoids, No ulcers, No gallbladder problem and No black,tarry stools Flip Hematologic: Yes blood thinners, No blood disorders, No bleeding, No anemia and No blood clots Additional Details: ASA Neuro Neurologic: No system reviewed and no additional complaints, except as documented, No as per HPI, No abnormal gait, No abnormal hearing, No abnormal movements, No abnormal speech, No behavioral changes, No burning sensations, No confusion, No convulsions, No disequilibrium, No dizziness, No localized weakness, No frequent falls, No headache(s), No lack of coordination, No loss of vision, No memory loss, No numbness, No other visual disturbances, No radicular pain, No restless legs, No sensory deficit, No syncope, No tingling, No tremor(s), No weakness and No other Exam Const General: cooperative, healthy appearing, comfortable, no acute distress and well developed Nutritional Appearance: well nourished Orientation: alert, awake and oriented x3 HENMT Head: normocephalic and atraumatic Ears: hearing grossly normal bilaterally Nose: external nose normal Eyes General: appearance normal, both eyes and all related structures EOM: EOM intact bilaterally Neck Neck: normal visual inspection, full ROM, no lymphadenopathy and trachea midline Thyroid: thyroid normal Resp Effort Inspection: normal respiratory effort, able to speak in complete sentences, symmetric chest movement, no audible wheezes, not labored, no stridor and no use of accessory muscles Cardio Rate: regular rate Rhythm: regular rhythm Skin General: no rashes or lesions noted and no erythema Wounds: no wounds Neuro Cranial Nerves: CN's II-XI intact bilaterally and EOM intact bilaterally Speech: speech normal Gait: normal gait Motor: strength 5/5 throug (more content not included)... Normal [facility] Venous Duplex US, Unilateral on 04-18-2024 Venous Duplex US, Unilateral [facility] [address] [place] [address] Venous Duplex US, Unilateral 04/18/24 0931 MR#: [id number] Acct: [id number] Name: ANTHONY CAMARGO Rep #: [id number] : 1990 34 From: Dangelo Rome MD Attending Dr: SAVANAH Gillette Status: DEP CLI Ordering Dr: Griselda Majano Date: 04/18/24 Location: [facility] Sex: F C Admitted: Version 2 Reason For Study: LLE Pain RIGHT LEFT CFV is compressible, spontaneous, phasic, CFV is compressible, spontaneous, phasic, competent and demonstrates normal competent, and demonstrates normal augmentation. augmentation. Procedure FV is compressible, spontaneous, phasic, This is a venous duplex using B-mode, color competent and demonstrates normal flow and spectral Doppler. augmentation. Exam performed in department. POP V is compressible, spontaneous, phasic, The exam was diagnostic. competent and demonstrates normal augmentation. T/P Trunk is compressible. PTV is compressible. LT PerV is compressible. SFJ is INCOMPETENT and measures 0.97 cm. GSV proximal thigh measures 0.77 x 0.76 cm. GSV at knee measures 0.40 x 0.38 cm. GSV above knee is INCOMPETENT for greater than 0.5 seconds. GSV below knee is competent. SSV proximal calf is competent and measures 0.28 x 0.30 cm. GSV/ASV Tortuous prox calf to dist thigh. SSV branch appears to feed varicosities outer calf. VL/Venous Duplex US, Unilateral Interpretation Summary Deep veins of the left lower extremity are patent and compressible segmentally. There is no evidence of left lower extremity deep vein thrombosis. The left great saphenous vein appears patent and compressible segmentally. Positive for reflux in the left saphenofemoral junction for greater than 0.5 seconds, great saphenous vein above the knee. Ordering Physician: Griselda Majano Referring Physician: Derrick Cisneros Performed By: Frederic Malloy, T 08/23/24 1328 Date Dangelo Rome MD CC: SAVANAH Gillette; Dr. Derrick Cisneros MD Date Dictated: 04/18/24930 Date Transcribed: 04/19/24733 Specialist Managers: Signed Normal [facility] MR/BMSJannie 03-29-2024 MR/BMSMONIQUE [facility] Vascular Surgery [address] [place] [address] OFFICE VISIT Date of Service: 03/29/24 MR#: [id number] Acct: [id number] Name: ANTHONY CAMARGO Rep #: [id number] : 1990 Provider: SAVANAH Gillette Age/Sex: 34/F Location: [facility] Status: Signed Intake Vital Signs 03/12/23 07:20 03/29/24 09:31 Height 5 ft 9 in Weight: 166 lb BP 110/68 Blood Pressure Location Rt brachial Position Sitting Respiration 14 Pulse 58 L Pulse Source Monitor Temp 98.4 F Temp Source Temporal Pulse Oximetry (%) 100 Oxygen Delivery Method room air Intake Visit Reasons: 1 Y FU Is patient in pain?: No Allergies No Known Allergies Allergy (Verified 03/29/24 09:33) Medications ???Medication ???Instructions ???Recorded ???Confirmed ???Type multivitamin 1 tab PO DAILY 08/01/22 03/29/24 History cholecalciferol (vitamin D3) 50 50 mcg PO DAILY 11/27/22 03/29/24 History mcg (2,000 unit) capsule aspirin 81 mg tablet,delayed 81 mg PO DAILY 04/02/23 04/02/23 History release Have you fallen in the past year?: No PFSH Family History Mother Breast cancer Social History Smoking Status: Never smoker alcohol intake: never substance use type: does not use caffeine: Yes what type of physical activity do you participate in: running frequency: 3-4 times per week seatbelt use: always do you feel safe at home: Yes additional social history: - Blade HPI HPI HPI: ANTHONY CAMARGO, is a 34 F who presents to the office today for 1 year follow-up s/p angioplasty/stenting of IVC and bilateral common/external iliac veins on 03/12/23. Her subsequent routine ultrasounds on 09/16/23 and 03/07/24 showed patent stents with normal flow patterns. She reports that while her symptoms did improve following venous stenting, she does still have significant persistent discomfort especially in her L medial calf varicosities. She has been wearing measured compression stockings and she elevates her legs as much as she can, but these symptoms remain persistent. She does not have any wounds. She has not had any known DVT/PE or phlebitis. She is interested in considering venous ablation. She did complete Plavix as instructed. She continues to take ASA 81mg daily without issue. She has no other complaints today and she has not other significant medical history. ROS General General: No weight change, appetite, fatigue, colon cancer, breast cancer or weakness HEENT HEENT: No difficulty swallowing, eye injury, eye surgery, swollen glands or hoarseness Endo Endocrine: No thyroid disease, diabetes mellitus, thyroid cancer, Hair loss, heat intolerance or cold intolerance Skin Skin: No rash or changing moles Musc Musculoskeletal: No back problems, arthritis, rheumatoid arthritis, gout or joint pain Cardio Cardiovascular: No murmur, pacemaker, heart disease, atrial fibrillation, high blood pressure, heart attack, heart stent, palpitations, shortness of breat with exertion or chest pain Psych Psychiatric: No depression, anxiety or hearing voices Resp Respiratory: No shortness of breath, No sleep apnea, No cough, No COPD, No asthma, No emphysema and No wheezing Gastro Gastrointestinal: No abdominal pain, No nausea or vomiting, No diarrhea, No constipation, No blood in stool, No acid reflux, No hemorrhoids, No ulcers, No gallbladder problem and No black,tarry stools Flip Hematologic: Yes blood thinners, No blood disorders, No bleeding, No anemia and No blood clots Neuro Neurologic: No system reviewed and no additional complaints, except as documented, No as per HPI, No abnormal gait, No abnormal hearing, No abnormal movements, No abnormal speech, No behavioral changes, No burning sensations, No confusion, No convulsions, No disequilibrium, No dizziness, No localized weakness, No frequent falls, No headache(s), No lack of coordination, No loss of vision, No memory loss, No numbness, No other visual disturbances, No radicular pain, No restless legs, No sensory deficit, No syncope, No tingling, No tremor(s), No weakness and No other Exam Const General: cooperative, healthy appearing, comfortable and no acute distress Orientation: alert, awake and oriented x3 HENMT Head: normal to inspection, normocephalic and atraumatic Ears: hearing grossly normal bilaterally and external ears normal Nose: external nose normal Eyes General: appearance normal, both eyes and all related structures EOM: EOM intact bilaterally Neck Neck: normal visual inspection, trachea midline and no anterior neck swelling Resp Effort Inspection: normal respiratory effort, able to speak in complete sentences, symmetric chest movem (more content not included)... Normal [facility] Abd Aortic/IVC Duplex scanon 03-07-2024 Abd Aortic/IVC Duplex scan [facility] [address] [place] [address] Abd Aortic/IVC Duplex scan 03/07/2417 MR#: [id number] Acct: [id number] Name: ANTHONY CAMARGO Rep #: [id number] : 1990 34 From: Dangelo Rome MD Attending Dr: SAVANAH Gillette Status: REG CLI Ordering Dr: Griselda Majano Date: 03/07/24 Location: [facility] Sex: F C Admitted: Reason For Study: Bilateral Iliac vein stents Inferior Vena Cava Proximal inferior vena cava measures 1.78 x 1.62 cm. in the cross-sectional axis. Proximal inferior vena cava measures 1.65 cm. in the longitudinal axis. Mid inferior vena cava measures 1.40 x 1.85 cm. in the cross-sectional axis. Mid inferior vena cava measures 1.20 cm. in the longitudinal axis. IVC distal, right stent, 0.98 x 0.94 x 1.18 cm. IVC distal, left stent, 1.04 x 0.97 x 1.12 cm. The inferior vena cava has spontaneous, phasic flow throughout. Left Common Iliac Vein Left common iliac vein measures 0.93 x 0.99 cm. in the cross-sectional axis. Left common iliac vein measures 0.94 cm. in the longitudinal axis. Stent noted in the left CIV. The left common iliac vein has spontaneous, phasic flow throughout. Right Common Iliac Vein Right common iliac vein measures 1.41 x 1.29 cm. in the cross-sectional axis. Right common iliac vein measures 1.31 cm. in the longitudinal axis. Stent noted in the right CIV. The right common iliac vein has spontaneous, phasic flow throughout. Procedure Aorta IVC Iliac vasculature or bypass grafts [id number]. Exam performed in department. VL/Abd Aortic/IVC Duplex scan Interpretation Summary Patent IVC and bilateral iliac vein stents with normal venous flow pattern. Ordering Physician: Griselda Majano Referring Physician: Derrick Cisneros Performed By: Peggy Whitlock RVT 03/07/24 1139 Date Dangelo Rome MD CC: SAVANAH Gillette; Dr. Derrick Cisneros MD Date Dictated: 03/07/24916 Date Transcribed: 03/07/24 113 Specialist Managers: Signed Normal [facility] Basophil percentageOrdered B y: Dr. Rome on 03-12-2023 Chloride [Moles/Vol] 106 mmol/L 98-107 [facility] Glucose [Mass/Vol] 90 mg/dL 74-106 [facility] Potassium [Moles/Vol] 4.5 mmol/L 3.5-5.1 [facility] Sodium [Moles/Vol] 137 mmol/L 136-145 [facility] WBC (Bld) [#/Vol] 4.8 10*3/uL 4.4-11.0 [facility] Beta hCG serum qualOrdered B y: Dr. Rome on 03-12-2023 Beta HCG ( test) Ql Negative [facility] Blood erythrocytes count (nu mber/volume)Ordered By: Dr. Rome on 03-12-2023 RBC (Bld) [#/Vol] 5.21 10*6/uL 4.2-5.4 [facility] Blood hemoglobin measurement (mass/volume)Ordered By: Dr. Rome on 03-12-2023 Hemoglobin (Bld) [Mass/Vol] 15.3 g/dL 12.0-15.0 [facility] Blood platelet mean volumeOr dered By: Dr. Rome on 03-12-2023 Platelet mean volume (Bld) [Entitic vol] 9.7 fL 6.2-12.0 [facility] Determination of erythrocyte mean corpuscular volume (MCV)Ordered By: Dr. Rome on 03-12-2023 MCV (RBC) [Entitic vol] 87.3 fL 81-99 [facility] Hematocrit Auto (Bld) [Volum e fraction]Ordered By: Dr. Rome on 03-12-2023 Hematocrit (Bld) [Volume fraction] 45.5 % 37-47 [facility] - Chemistry and C hemistry - challengeOrdered By: Dr. Rome on 03-12-2023 CO2 [Moles/Vol] 26.0 mmol/L 21.0-32.0 [facility] Urea nitrogen/Creatinine [Mass ratio] 20.2 mg/mg 10-20 [facility] - Hematology and Cell countsOrdered By: Dr. Rome on 03-12-2023 Erythrocyte distribution width (RBC) [Entitic vol] 38.5 fL 35.1-43.9 [facility] Erythrocyte distribution width (RBC) [Ratio] 11.9 % 11.6-14.6 [facility] MCH (RBC) [Entitic mass] 29.4 pg 27.0-32.0 [facility] MCHC Auto (RBC) [Mass/Vol]Or dered By: Dr. Rome on 03-12-2023 MCHC (RBC) [Mass/Vol] 33.6 g/dL 32-36 [facility] No Panel InformationOrdered By: Dr. Rome on 03-12-2023 Estimated Creatinine Clearance Calc 94.84 ml/min [facility] Estimated GFR (MDRD) Amer 94 mL/min >60 [facility] Comment on above: GFR Calc Estimated GFR (MDRD) Non-Af Amer 78 mL/min >60 [facility] Comment on above: Non- GFR Calc Platelets bldOrdered By: Dr. Rome on 03-12-2023 Platelets (Bld) [#/Vol] 244 10*3/uL 150-450 [facility] Serum or plasma calcium emmanuel urement (mass/volume)Ordered By: Dr. Rome on 03-12-2023 Calcium [Mass/Vol] 9.2 mg/dL 8.5-10.1 [facility] Serum or plasma creatinine m easurement (mass/volume)Ordered By: Dr. Rome on 03-12-2023 Creatinine [Mass/Vol] 0.89 mg/dL 0.55-1.02 [facility] Comment on above: The validity of the calculated GFR & GFRAA in patients over 70 years has not been determined. Clinical correlation is essential. Serum or plasma urea nitroge n measurement (mass/volume)Ordered By: Dr. Rome on 03-12-2023 Urea nitrogen [Mass/Vol] 18 mg/dL 7-18 [facility] Thin prep Papanicolaou smear with manual screeningOrdered By: Dr. Rome on 03-12-2023 Thin prep Papanicolaou smear with manual screening 5 5-15 [facility] Absolute lymphocyte counton 05-22-2022 Lymphocytes Auto (Unsp spec) [#/Vol] 2.24 10*3/uL 0.83-4.51 [facility] Work Phone: Basophil percentageon 2021 Basophils/100 WBC (Bld) 0.4 % 0-1 [facility] Work Phone: [phone] Bilirubin [Mass/Vol] 0.70 mg/dL 0.20-1.00 [facility] Work Phone: Comment on above: For patients on eltr ombopag therapy, use of Dimension [place] TBIL is not recommended. Chloride [Moles/Vol] 105 mmol/L 98-107 [facility] Work Phone: Cholesterol [Mass/Vol] 178 mg/dL <200 [facility] Work Phone: Comment on above: <200 mg/dL Desirable 200-240 mg/dL Borderline >240 mg/dL High Risk Eosinophils/100 WBC (Bld) 1.4 % 0-5 [facility] Work Phone: Glucose [Mass/Vol] 87 mg/dL 74-106 [facility] Work Phone: Neutrophils (Bld) [#/Vol] 2.7 10*3/uL 2.0-7.7 [facility] Work Phone: Neutrophils/100 WBC (Bld) 48.4 % 47-70 [facility] Work Phone: Potassium [Moles/Vol] 4.3 mmol/L 3.5-5.1 [facility] Work Phone: Protein [Mass/Vol] 7.8 g/dL 6.4-8.2 [facility] Work Phone: Sodium [Moles/Vol] 138 mmol/L 136-145 [facility] Work Phone: [phone] Triglyceride [Mass/Vol] 104 mg/dL <199 [facility] Work Phone: Comment on above: The drugs N-Acetylcy steine and Metamizole may falsely depress this assay.Serum Triglycerides Reference Interval Normal <150 mg/dL Borderline high 150 - 199 mg/dL High 200 - 499 mg/dL Very High > or = 500 mg/dL WBC (Bld) [#/Vol] 5.6 10*3/uL 4.4-11.0 [facility] Work Phone: [phone] Blood erythrocytes count (nu mber/volume)on 05-22-2022 RBC (Bld) [#/Vol] 5.34 10*6/uL 4.2-5.4 [facility] Work Phone: [phone] Blood hemoglobin measurement (mass/volume)on 05-22-2022 Hemoglobin (Bld) [Mass/Vol] 15.5 g/dL 12.0-15.0 [facility] Work Phone: [phone] Blood lymphocytes/100 leukoc yteson 05-22-2022 Lymphocytes/100 WBC (Bld) 40.1 % 19-41 [facility] Work Phone: [phone] Blood monocytes/100 leukocyt eson 05-22-2022 Monocytes/100 WBC (Bld) 8.6 % 0-10 [facility] Work Phone: [phone] Blood platelet mean volumeon 05-22-2022 Platelet mean volume (Bld) [Entitic vol] 9.8 fL 6.2-12.0 [facility] Work Phone: [phone] Determination of erythrocyte mean corpuscular volume (MCV)on 05-22-2022 MCV (RBC) [Entitic vol] 86.1 fL 81-99 [facility] Work Phone: Hematocrit Auto (Bld) [Volum e fraction]on 05-22-2022 Hematocrit (Bld) [Volume fraction] 46.0 % 37-47 [facility] Work Phone: Laboratory - Chemistry and C hemistry - challengeon 05-22-2022 ALP [Catalytic activity/Vol] 48 U/L 45-117 [facility] Work Phone: [phone] ALT [Catalytic activity/Vol] 17 U/L 13-56 [facility] Work Phone: [phone] CO2 [Moles/Vol] 28.0 mmol/L 21.0-32.0 [facility] Work Phone: [phone] Globulin (S) [Mass/Vol] 3.8 g/dL 2.2-4.2 [facility] Work Phone: [phone] Urea nitrogen/Creatinine [Mass ratio] 15.0 mg/mg 10-20 [facility] Work Phone: Laboratory - Hematology and Cell countson 05-22-2022 Erythrocyte distribution width (RBC) [Entitic vol] 38.0 fL 35.1-43.9 [facility] Work Phone: [phone] Erythrocyte distribution width (RBC) [Ratio] 12.1 % 11.6-14.6 [facility] Work Phone: [phone] Immature granulocytes/100 WBC (Bld) 1.100 % 0.0-0.9 [facility] Work Phone: Comment on above: IG% - Immature Granu locytes (promyelocytes, myelocytes and metamyelocytes) > 1% indicates that a LEFT SHIFT is Present. MCH (RBC) [Entitic mass] 29.0 pg 27.0-32.0 [facility] Work Phone: Nucleated RBC/100 WBC (Bld) [Ratio] 0 % 0-5 [facility] Work Phone: [phone] MCHC Auto (RBC) [Mass/Vol]on 05-22-2022 MCHC (RBC) [Mass/Vol] 33.7 g/dL 32-36 [facility] Work Phone: No Panel Informationon 05-22 Estimated GFR (MDRD) Amer 98 mL/min >60 [facility] Work Phone: Comment on above: GFR Calc Estimated GFR (MDRD) Non-Af Amer 81 mL/min >60 [facility] Work Phone: Comment on above: Non- GFR Calc Thyroid Stimulating Hormone (TSH) 1.23 uIU/mL 0.358-3.74 [facility] Work Phone: Platelets bldon 05-22-2022 Platelets (Bld) [#/Vol] 249 10*3/uL 150-450 [facility] Work Phone: [phone] Serum or plasma albumin emmanuel urement (mass/volume)on 05-22-2022 Albumin [Mass/Vol] 4.0 g/dL 3.2-5.0 [facility] Work Phone: [phone] Serum or plasma albumin/glob ulin mass ratioon 05-22-2022 Albumin/Globulin [Mass ratio] 1.1 {ratio} 0.9-2.4 [facility] Work Phone: [phone] Serum or plasma calcium emmanuel urement (mass/volume)on 05-22-2022 Calcium [Mass/Vol] 8.8 mg/dL 8.5-10.1 [facility] Work Phone: [phone] Serum or plasma cholesterol in HDL measurement (mass/volume)on 05-22-2022 Cholesterol in HDL [Mass/Vol] 50 mg/dL >40 [facility] Work Phone: Comment on above: The drugs N-Acetylcy steine and Metamizole may falsely depress this assay. Reference Range HDL <40 mg/dL Low HDL Cholesterol HDL >or= 60 mg/dL High HDL Cholesterol Serum or plasma cholesterol in VLDL measurement (mass/volume)on 05-22-2022 Cholesterol in VLDL [Mass/Vol] 21 mg/dL 5-40 [facility] Work Phone: Serum or plasma creatinine m easurement (mass/volume)on 05-22-2022 Creatinine [Mass/Vol] 0.87 mg/dL 0.55-1.02 [facility] Work Phone: Comment on above: The validity of the calculated GFR & GFRAA in patients over 70 years has not been determined. Clinical correlation is essential. Serum or plasma low density lipoprotein (LDL) cholesterol measurement (mass/volume)on 05-22-2022 Cholesterol in LDL [Mass/Vol] 107 mg/dL 0-130 [facility] Work Phone: Serum or plasma urea nitroge n measurement (mass/volume)on 05-22-2022 Urea nitrogen [Mass/Vol] 13 mg/dL 7-18 [facility] [facility] Work Phone: Thin prep Papanicolaou smear with manual screeningon 05-22-2022 Thin prep Papanicolaou smear with manual screening 13 U/L 15-37 [facility] Work Phone: [phone] Thin prep Papanicolaou smear with manual screening 5 5-15 [facility] Work Phone: [phone] Whole blood hemoglobin A1c/t otal hemoglobin ratio (mass fraction)on 05-22-2022 HbA1c (Bld) [Mass fraction] 5.1 % 3.8-5.6 [facility] Work Phone: Comment on above: Normal < 5.7 % Predi abetic 5.7 - 6.4 % Diabetic >or= 6.5 % Please note range changes. Vital Signs Date Time Vital Sign Value Performing Clinician Faci lity 12-22-2024 07:49-0400 Body height 175.26 cm Derrick Cisneros MD Work Phone: [facility] 12-22-2024 07:49-0400 Body weight 75.74 kg Derrick Cisneros MD Work Phone: [facility] 12-21-2024 08:17-0400 Body mass index (BMI) [Ratio] 24.6 kg/m2 Derrick Cisneros MD Work Phone: [facility] 03-12-2023 07:20-0400 Body height 175.26 cm DO Linh Em Work Phone: [facility] 03-12-2023 07:20-0400 Body weight 76.43 kg DO Linh Em Work Phone: [facility] 03-11-2023 08:03-0400 Body mass index (BMI) [Ratio] 24.8 kg/m2 DO Linh Em Work Phone: [facility] 12-04-2022 14:31-0500 Body mass index (BMI) [Ratio] 24.8 kg/m2 DO Linh Em Work Phone: [facility] 12-04-2022 14:31-0500 Body temperature 98.6 [degF] DO Linh Em Work Phone: [facility] 12-04-2022 14:31-0500 Body weight 76.43 kg DO Linh Em Work Phone: [facility] 12-04-2022 14:31-0500 Diastolic blood pressure 74 mm[Hg] DO Linh Em Work Phone: [facility] 12-04-2022 14:31-0500 Heart rate 63 /min DO Linh Em Work Phone: [facility] 12-04-2022 14:31-0500 Respiratory rate 17 /min DO Linh Em Work Phone: [facility] 12-04-2022 14:31-0500 SaO2% (BldA) [Mass fraction] 100 % DO Linh Hubbarder Work Phone: [facility] 12-04-2022 14:31-0500 Systolic blood pressure 120 mm[Hg] DO Linhmacy Grovesnger Work Phone: [facility] 11-27-2022 09:27-0500 Body temperature 99.1 [degF] DO Linh Grovesnger Work Phone: [facility] 11-27-2022 09:27-0500 Body weight 75.74 kg DO Linh Grovesnger Work Phone: [facility] 11-27-2022 09:27-0500 Diastolic blood pressure 71 mm[Hg] DO Linh Grovesnger Work Phone: [facility] 11-27-2022 09:27-0500 Heart rate 66 /min DO Linh Grovesnger Work Phone: [facility] 11-27-2022 09:27-0500 Respiratory rate 16 /min DO Linh Hubbarder Work Phone: [facility] 11-27-2022 09:27-0500 SaO2% (BldA) [Mass fraction] 99 % DO Linh Grovesnger Work Phone: [facility] 11-27-2022 09:27-0500 Systolic blood pressure 113 mm[Hg] DO Linh Hubbarder Work Phone: [facility] 08-01-2022 10:15-0400 Body height 173.99 cm No Primary Care Physician [facility] Work Phone: 08-01-2022 10:15-0400 Body mass index (BMI) [Ratio] 24.7 kg/m2 No Primary Care Physician [facility] Work Phone: 08-01-2022 10:15-0400 Body weight 74.95 kg No Primary Care Physician [facility] Work Phone: 08-01-2022 10:15-0400 Diastolic blood pressure 79 mm[Hg] No Primary Care Physician [facility] Work Phone: 08-01-2022 10:15-0400 Systolic blood pressure 126 mm[Hg] No Primary Care Physician [facility] Work Phone: Encounters Encounter Date Encounter Type Care Provider Facility Start: 03-08-2025 ambulatory Chalon Blayne Facility:[facility] Start: 01-11-2025 End: 01-11-2025 ambulatory Chalon Blayne Facility:[facility] Start: 12-26-2024 Non-patient / Non-visit Dr. Dangelo borja MD -[facility] Start: 12-26-2024 End: 12-26-2024 ambulatory Derrick Cisneros MD Work Phone: [facility] Work Phone: Start: 12-26-2024 End: 12-26-2024 Patient encounter procedure Griselda PAVON -Cardiovascular Services Work Phone: Start: 12-26-2024 End: 12-26-2024 ambulatory Chalon Blayne Facility:[facility] Start: 12-22-2024 ambulatory Chalon Blayne Facility:[facility] Start: 12-22-2024 Non-patient / Non-visit Dr. Dangelo borja MD -[facility] Start: 12-22-2024 End: 12-22-2024 Admission to same day surgery center Dr. Dangelo Rome MD -[employer]/Special Procedures Work Phone: Start: 12-22-2024 End: 12-22-2024 ambulatory Derrick Cisneros MD Work Phone: [facility] Work Phone: Start: 09-16-2024 ambulatory Chalon Blayne Facility:[facility] Start: 08-13-2024 End: 08-13-2024 ambulatory Chalon Blayne Facility:[facility] Start: 08-02-2024 End: 08-02-2024 ambulatory Chalon Blayne Facility:[facility] Start: 06-22-2024 End: 06-22-2024 ambulatory Chalon Blayne Facility:[facility] Start: 06-09-2024 End: 06-09-2024 ambulatory Chalon Blayne Facility:[facility] Start: 04-18-2024 ambulatory Chalon Blayne Facility:[facility] Start: 04-18-2024 End: 04-18-2024 ambulatory Chalon Blayne Facility:[facility] Start: 03-29-2024 End: 03-29-2024 ambulatory Griselda Majano Facility:[facility] Start: 03-07-2024 ambulatory Chalon Blayne Facility:[facility] Start: 03-07-2024 End: 03-07-2024 ambulatory Griselda Majano Facility:[facility] Start: 09-16-2023 Non-patient / Non-visit DO Zain Strickland Work Phone: [facility] Start: 09-16-2023 End: 09-16-2023 ambulatory DO Linh Strickland Work Phone: [facility] Work Phone: Start: 09-16-2023 End: 09-16-2023 Patient encounter procedure DO Linh Strickland Work Phone: [facility]-Cardiovascular Services Work Phone: Start: 03-12-2023 Non-patient / Non-visit DO Zain Strickland Work Phone: [facility] Start: 03-12-2023 End: 03-12-2023 Admission to same day surgery center DO Linh Strickland Work Phone: [facility]-[employer] Data Analyst/Special Procedures Start: 03-12-2023 End: 03-12-2023 ambulatory DO Linh Strickland Work Phone: [facility] Work Phone: Start: 12-04-2022 End: 12-04-2022 Patient encounter procedure DO Linh Strickland Work Phone: [facility] Start: 11-27-2022 End: 11-27-2022 Patient encounter procedure DO Linh Strickland Work Phone: [facility] Start: 08-01-2022 End: 08-01-2022 ambulatory No Primary Care Physician [facility] Work Phone: Start: 08-01-2022 End: 08-01-2022 Patient encounter procedure No Primary Care Physician [facility]-Laboratory, Specimen Start: 08-01-2022 End: 08-01-2022 Patient encounter procedure No Primary Care Physician [facility] Start: 05-22-2022 End: 05-22-2022 ambulatory [facility] Work Phone: Start: 05-22-2022 End: 05-22-2022 Patient encounter procedure [facility]-Laboratory, [facility] Plan of Treatment Date Care Activity Detail Author Start: 12-22-2024 Patient discharge [facility] Start: 08-01-2022 Liquid based cervica l cytology screening [facility] Work Phone: Path report.final Dx Spec [facility] Work Phone: Patient referral [facility] Work Phone: Payers Date Payer Category Payer Unknown [id number] 2024 Self-pay 2023 Private Health Insurance [id number] Unknown [id number] 2.16.8 [id number] Unknown [id number] 2.16.8 [id number] Unknown [id number] 2.16.8 [id number] Unknown [id number] 2.16.8 [id number] Unknown [id number] 2.16.8 [id number] Unknown [id number] 2.16.8 [id number] Unknown [id number] 2.16.8 [id number] Unknown [id number] 2.16.8 [id number] Unknown [id number] 2.16.8 [id number] Unknown [id number] 2.16.8 [id number] Unknown [id number] 2.16.8 [id number] Unknown [id number] 2.16.8 [id number] Unknown [id number] 2.16.8 [id number] Unknown [id number] 2.16.8 [id number] Unknown [id number] 2.16.8 [id number] Unknown [id number] 2.16.8 [id number] Social History Date Type Detail [facility] Work Phone: Start: 1990 Sex Assigned At Female [facility] Start: 08-01-2022 End: 04-02-2023 Tobacco smoking status NHIS Unknown if ever smoked [facility] Start: 12-22-2024 [facility] (finding[facility] Start: 12-22-2024 End: 12-29-2024 Sex Female (finding) [facility] Medical Equipment Procedure Code Equipment Code Equipment Origin al Text Equipment Identifier Dates Bare-metal tracheal/bronchial/v ascular stent [id number] [facility] Start: 03-12-2023 History and physical note 12-22-2024 Note Date & Type Note Facility 12-22-2024 History and physical note Note Date/Time December 22, 2024 9:58am [facility] Medical Records Department [address] [place] [address] History & Physical Exam 12/22/24 0953 MR#: [id number] Acct: [id number] Name: ANTHONY CAMARGO Rep #:[id number] : 1990 34 From: Dangelo Rome MD PCP: Dr. 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 She presents for GSV chemical ablation with phlebectomy of communicating varicosities. 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 Home Medications ?Medication ?Instructions ?Recorded ?Last Taken ?Type multivitamin 1 tab PO DAILY 08/01/22 Unkn own History cholecalciferol (vitamin D3) 50 50 mcg PO DAILY Unknown History mcg (2,000 unit) capsule aspirin 81 mg tablet,delayed 81 mg PO DAILY 04/02/23 U nknown History release Allergy/AdvReac Type Severity Reaction Status Date / Time No Known Allergies Allergy Verified 08/02/24 14:12 Family History Mother Breast cancer Surgical History S/P insertion of iliac artery stent Social History Smoking Status: Never smoker alcohol intake: never substance use type: does not use caffeine: Yes what type of physical activity do you participate in: running and weight training frequency: 5-6 times per week seatbelt use: always do you feel safe at home: Yes additional social history: - Blade ROS Constitutional Constitutional: Denies chills, fever(s), frequent falls, lethargy or weakness Eyes Eyes: Denies blind spots, change in vision or loss of vision ENT HEENT: Denies bleeding gums, hoarseness or sore throat Cardiovascular Cardiovascular: Denies abdominal pain, bluish discoloration of hand/feet, chest pain with activity, claudication, cold extremities, cyanosis, dyspnea on exertion, erythema on extremities, irregular heart rhythm, leg edema, leg ulcers, numbness in extremities or weakness in extremities Respiratory/Chest Respiratory/Chest: Denies cough, excessive phlegm production, shortness of breath at rest, shortness of breath with exertion or wheezing Gastrointestinal Gastrointestinal: Denies anorexia, change in stool character, constipation, diarrhea, melena or rectal bleeding Genitourinary Genitourinary: Denies dysuria or hematuria Musculoskeletal Musculoskeletal: Denies abnormal gait Integumentary Integumentary: Reports other Details: ; Denies erythema, non-healing lesions or wounds Neurologic Neurologic: Denies abnormal speech, focal weakness, headache(s), loss of vision,numbness, paresthesias or sensory deficit Hematologic/Lymphatic Hematologic/Lymphatic: Denies easy bleeding, easy bruising or lymphadenopathy Vital Signs Vital Signs Vital Signs: Weight Weight: 167 lb Body Mass Index (BMI) 24.6 Physical Exam Const alert, oriented x3, no apparent distress and healthy appearing General Appearance: cooperative; Negative for combative or lethargic Orientation / Consciousness: awake Exam Limitations: no limitations HEENT Head and Scalp: normocephalic and atraumatic Eyes EOMs intact bilaterally General Eye: normal appearance of both eyes Neck full ROM General: trachea midline Resp normal respiratory effort and no use of accessory muscles Effort and Inspection: Negative for labored, stridor or audible wheezes Cardio regular rate and regular rhythm Back/Spine Cervical Spine: cervical ROM normal Extremity full ROM, normal capillary refill and no clubbing, cyanosis or edema Skin no rashes or lesions noted and no wounds Neuro oriented x3, CN's II-XII intact bilaterally, no focal motor deficits and no sensory deficits noted Psych thought process normal, cooperative, affect normal, speech normal and activity/motor behavior normal Results Lab / Micro Data 12/22/24 07:24 12/22/24 07:24 Labs: Laboratory Results - last 24 hr 12/22/24 07:24: WBC 4.8, RBC 5.06, Hgb 15.1 H, Hct 42.7, MCV 84.4, MCH 29.8, MCHC 35.4, RDW Std Deviation 37.0, RDW Coeff of Derick 12.2, Plt Count 229, MPV 9.6, Sodium 139, Potassium 4.7, Chloride 105, Carbon Dioxide 25.2, Anion Gap 9, BUN 17, Creatinine 0.86, Estim Creat Clear Calc 97.24, Est GFR (MDRD) Non-Af 92,BUN/Creatinine Ratio 19.9, Glucose 100 H, Calcium 9.0 Assessment & Plan Assessment/Plan (1) Varicose veins of left lower extremity: QUALIFIERS: Varicose vein complication: pain Qualified Code(s): I83.812 - Varicose veins of left lower extremity with pain PLAN: -with pain -chemical ablation lefft GSV, stab phlebectomy 12/22/24 0958 <Electronically signed by Dangelo Rome MD> Cosigner Signature (if applicable): CC: Dr. Derrick Cisneros MD; Dr. Dangelo Rome MD~ Signed [facility] Work Phone: History and physical note 12-22-2024 Note Date & Type Note Facility 12-22-2024 History and physi adrianna note [facility] Clinical Note 12-22-2024 Note Date & Type Note Facility 12-22-2024 Note [facility] Medical Records Department [address] [place] [id number] History Physical Exam 12/22/24 0953 MR#: [id number] Acct: [id number] Name: ANTHONY CAMARGO Rep #: [id number] : 1990 34 From: Dangelo Rome MD PCP: Dr. Derrick Cisneros MD Status:REG [facility] Location: [facility] HPI - General HPI Narrative ANTHONY CAMARGO, is a 34 F who presents with left lower extremity painful varicose veins refractory to compression. She has GSV reflux though the vessel inferiorly obliterates and communication to lower leg is via varicosities that are also incompetent. She presents for GSV chemical ablation with phlebectomy of communicating varicosities. 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 Home Medications ???Medication ???Instructions ???Recorded ???Last Taken ???Type multivitamin 1 tab PO DAILY 11/04/22 Unknown Hi story cholecalciferol (vitamin D3) 50 50 mcg PO DAILY 11/27/22 Unknown H istory mcg (2,000 unit) capsule aspirin 81 mg tablet,delayed 81 mg PO DAILY 04/02/23 Unknown Hi story release Allergy/AdvReac Type Severity Reaction Status Date / Time No Known Allergies Allergy Verified 08/02/24 14:12 Family History Mother Breast cancer Surgical History S/P insertion of iliac artery stent Social History Smoking Status: Never smoker alcohol intake: never substance use type: does not use caffeine: Yes what type of physical activity do you participate in: running and weight training frequency: 5-6 times per week seatbelt use: always do you feel safe at home: Yes additional social history: - Blade ROS Constitutional Constitutional: Denies chills, fever(s), frequent falls, lethargy or weakness Eyes Eyes: Denies blind spots, change in vision or loss of vision ENT HEENT: Denies bleeding gums, hoarseness or sore throat Cardiovascular Cardiovascular: Denies abdominal pain, bluish discoloration of hand/feet, chest pain with activity, claudication, cold extremities, cyanosis, dyspnea on exertion, erythema on extremities, irregular heart rhythm, leg edema, leg ulcers, numbness in extremities or weakness in extremities Respiratory/Chest Respiratory/Chest: Denies cough, excessive phlegm production, shortness of breath at rest, shortness of breath with exertion or wheezing Gastrointestinal Gastrointestinal: Denies anorexia, change in stool character, constipation, diarrhea, melena or rectal bleeding Genitourinary Genitourinary: Denies dysuria or hematuria Musculoskeletal Musculoskeletal: Denies abnormal gait Integumentary Integumentary: Reports other Details: ; Denies erythema, non-healing lesions or wounds Neurologic Neurologic: Denies abnormal speech, focal weakness, headache(s), loss of vision, numbness, paresthesias or sensory deficit Hematologic/Lymphatic Hematologic/Lymphatic: Denies easy bleeding, easy bruising or lymphadenopathy Vital Signs Vital Signs Vital Signs: Weight Weight: 167 lb Body Mass Index (BMI) 24.6 Physical Exam Const alert, oriented x3, no apparent distress and healthy appearing General Appearance: cooperative; Negative for combative or lethargic Orientation / Consciousness: awake Exam Limitations: no limitations HEENT Head and Scalp: normocephalic and atraumatic Eyes EOMs intact bilaterally General Eye: normal appearance of both eyes Neck full ROM General: trachea midline Resp normal respiratory effort and no use of accessory muscles Effort and Inspection: Negative for labored, stridor or audible wheezes Cardio regular rate and regular rhythm Back/Spine Cervical Spine: cervical ROM normal Extremity full ROM, normal capillary refill and no clubbing, cyanosis or edema Skin no rashes or lesions noted and no wounds Neuro oriented x3, CN's II-XII intact bilaterally, no focal motor deficits and no sensory deficits noted Psych thought process normal, cooperative, affect normal, speech normal and activity/motor behavior normal Results Lab / Micro Data 12/22/24 07:24 12/22/24 07:24 Labs: Laboratory Results - last 24 hr 12/22/24 07:24: WBC 4.8, RBC 5.06, Hgb 15.1 H, Hct 42.7, MCV 84.4, MCH 29.8, MCHC 35.4, RDW Std Deviation 37.0, RDW Coeff of Derick 12.2, Plt Count 229, MPV 9.6, Sodium 139, Potassium 4.7, Chloride 105, Carbon Dioxide 25.2, Anion Gap 9, BUN 17, Creatinine 0.86, Estim Creat Clear Calc 97.24, Est GFR (MDRD) Non-Af 92, BUN/Creatinine Ratio 19.9, Glucose 100 H, Calcium 9.0 Assessment Plan Assessment/Plan (1) Varicose veins of left lower extremity: QUALIFIERS: Varicose vein complication: pain Qualified Code(s): I83.812 - (more content not included)... [facility] Evaluation note 12-22-2024 Note Date & Type Note Facility 12-22-2024 Evaluation note Diagnosis Onset Date Resolution Varicose veins of left lower extremity chronic December 22, 2024 7:18am [facility] Work Phone: History and physical note 03-12-2023 Note Date & Type Note Facility 03-12-2023 History and physi adrianna note Note Date/Time March 12, 2023 7:27am [facility] Medical Records Department [address] [place] [address] History & Physical Exam 03/12/23718 MR#: [id number] Acct: [id number] Name: ANTHONY CAMARGO Rep #:[id number] : 1990 33 From: Griselda PAVON PCP: Linh Strickland, DO Status:REG S DC Location: [facility] HPI - General General Date of Service: 03/12/23 HPI Narrative ANTHONY CAMARGO, is a 33 F who presents for venogram. She has painful, prominent varicosities of LLE which have been present in some capacity since her teenage years but became much worse after she had children a few years ago. She has consistently worn compression without sufficient relief of her symptoms. She was considering ablation with another vascular surgeon who felt she may have May-Thurner's but had planned to proceed with ablation, she initially presented to this office for second opinion. After discussion, ultimately decided to proceed first with venogram to assess for significant central venous compression prior to any potential venous ablation. She denies any interval changes in her medical history or medications since her last office visit. She denies history of VTE, prior venous ablations, prior injury/surgery to LLE. Today, she is feeling well with no CP, SOB, N/V, F/C, palpitations, lightheadedness/syncope. PFSH Home Medications multivitamin 1 tab PO DAILY 08/01/22 [History Last Taken Unknown] cholecalciferol (vitamin D3) 50 mcg (2,000 unit) capsule 50 mcg PO DAILY 11/27/22 [History Last Taken Unknown] Allergy/AdvReac Type Severity Reaction Status Date / Time No Known Allergies Allergy Unverified 12/04/22 14:32 Family History Mother Breast cancer Social History Smoking Status: Never smoker alcohol intake: never substance use type: does not use caffeine: Yes what type of physical activity do you participate in: running frequency: 3-4 times per week seatbelt use: always do you feel safe at home: Yes additional social history: - Blade ROS ROS Narrative ROS General General: Yes weight change; No appetite, fatigue, colon cancer, breast cancer or weakness HEENT HEENT: No difficulty swallowing, eye injury, eye surgery, swollen glands or hoarseness Endo Endocrine: No thyroid disease, diabetes mellitus, thyroid cancer, Hair loss, heat intolerance or cold intolerance Skin Skin: No rash or changing moles Musc Musculoskeletal: No back problems, arthritis, rheumatoid arthritis, gout or joint pain Cardio Cardiovascular: No murmur, pacemaker, heart disease, atrial fibrillation, high blood pressure, heart attack, heart stent, palpitations, shortness of breat withexertion or chest pain Psych Psychiatric: No depression, anxiety or hearing voices Resp Respiratory: No shortness of breath, No sleep apnea, No cough, No COPD, No asthma, No emphysema and No wheezing Gastro Gastrointestinal: No abdominal pain, No nausea or vomiting, No diarrhea, No constipation, No blood in stool, No acid reflux, No hemorrhoids, No ulcers, No gallbladder problem and No black,tarry stools Flip Hematologic: No blood thinners, No blood disorders, No bleeding, No anemia and No blood clots Neuro Neurologic: No system reviewed and no additional complaints, except as documented, No as per HPI, No abnormal gait, No abnormal hearing, No abnormal movements, No abnormal speech, No behavioral changes, Yes burning sensations, No confusion, No convulsions, No disequilibrium, No dizziness, No localized weakness, No frequent falls, No headache(s), No lack of coordination, No loss ofvision, No memory loss, No numbness, No other visual disturbances, No radicular pain, No restless legs, No sensory deficit, No syncope, No tingling, No tremor(s), No weakness and No other Vital Signs Vital Signs Vital Signs: Weight Weight: 168 lb 8 oz Body Mass Index (BMI) 24.8 Physical Exam Narrative Exam Const General: cooperative, healthy appearing, comfortable and no acute distress Orientation: alert, awake and oriented x3 HENMT Head: normal to inspection, normocephalic and atraumatic Ears: hearing grossly normal bilaterally and external ears normal Nose: external nose normal Eyes General: appearance normal, both eyes and all related structures EOM: EOM intact bilaterally Neck Neck: normal visual inspection, full ROM, trachea midline and no anterior neck swelling Resp Effort & Inspection: normal respiratory effort, able to speak in complete sentences, symmetric chest movement, no audible wheezes, not labored, no stridorand no use of accessory muscles Auscultation: clear to auscultation bilaterally Cardio Rate: regular rate Rhythm: regular rhythm Pulses: brachial pulses present, radial pulses present, posterior tibial pulses present and dorsalis pedis present Skin General: no rashes or lesions noted, no ecchymosis, no erythema, no mottling, nopetechiae, no purpura and no pallor Trauma: no lacerations or abrasions Wounds: no wounds Neuro General: patient alert, patient awake, patient oriented x3, gait normal, moves all extremities, no focal motor deficits and CN's II-XI intact bilaterally Cognition: normal cognition Speech: speech normal Sensory Exam: no sensory deficits noted Extremities Pulses: Normal: Right Dorsalis Pedis Pulse, Left Dorsalis Pedis Pulse, Right Posterior Tibial Pulse, Left Posterior Tibial Pulse, Right Radial Pulse and LeftRadial Pulse Additional Details: Prominent cluster of varicosities medial aspect L knee, less prominent varicosities extending up the thigh and down calf medially and laterally. No varicosities on RLE. Psych Appearance: grossly normal Mental Status: mental status grossly normal Mood: congruent mood Affect: normal affect Speech and Movement: speech and movement normal Attitude: cooperative Thought Process: normal Thought Content: normal Judgment: judgment good Results Lab / Micro Data Result Diagrams: 03/12/23 06:52 03/12/23 06:52 Labs: Laboratory Results - last 24 hr 03/12/23 06:52: WBC 4.8, RBC 5.21, Hgb 15.3 H, Hct 45.5, MCV 87.3, MCH 29.4, MCHC 33.6, RDW Std Deviation 38.5, RDW Coeff of Derick 11.9, Plt Count 244, MPV 9.7 03/12/23 06:52: Sodium 137, Potassium 4.5, Chloride 106, Carbon Dioxide 26.0, Anion Gap 5, BUN 18, Creatinine 0.89, Estim Creat Clear Calc 94.84, Est GFR (MDRD) Af Amer 94, Est GFR (MDRD) Non-Af 78, BUN/Creatinine Ratio 20.2 H, Glucose 90, Calcium 9.2 Assessment & Plan Assessment/Plan (1) Varicose veins of left lower extremity: PLAN: We discussed the procedure and patient had all of her questions and concerns addressed. She remains agreeable to proceed with venogram today with the understanding that if significant compression is identified it would be treated with stenting as appropriate. She also understands that if stents were placed she would be placed on DAPT x1 year then ASA indefinitely. She will follow-up inthe office in 2-4 weeks following procedure today. 03/12/23 0740 <Electronically signed by Griselda PAVON> Cosigner Signature (if applicable): 03/12/23 1016 <Electronically signed by Dangelo Rome MD> CC: SAVANAH Teague; Dr. Dangelo Rome MD; Linh Strickland DO~ Signed [facility] Work Phone: Evaluation note Note Date & Type Note Facility Evaluation note No assessment information availa ble [facility] Work Phone: Evaluation note Note Date & Type Note Facility Evaluation note Diagnosis Onset Date Varicose veins of left lower extremity acute Varicose veins of left lower extremity acute Varicose veins of left lower extremity acute [facility] Work Phone: Reason for referral (narrative) Note Date & Type Note Facility Reason for referral (narrative) No reason for referral information available [facility] Work Phone: Chief Complaint and Reason for Visit Chief Complaint Annual (DATASTAGE ARCHITECT) Chief Complaint Varicose veins DISCUSS VENOGRAM VENOGRAM, POSSIBLE STENT VENOGRAM, POSSIBLE STENT Reason for Visit Varicose veins of le ft lower extremity Varicose veins of left lower extremity Varicose veins of left lower extremity Chief Complaint Compression of vein Chief Complaint Admit Date LLE VARICOSE VEINS December 22, 2024 7:1 8am LLE VARICOSE VEINS December 22, 2024 9:5 3am Reason for Visit Admit Date Varicose veins of left lower extremity M arch 2024 7:18am Chief Complaint Admit Date LLE VARICOSE VEINS December 22, 2024 7:1 8am LLE VARICOSE VEINS December 22, 2024 9:5 3am S/P ABLATION December 26, 2024 1:5 2pm Advance Directives No Advanced Directives Records Found Advance Directive Response Recorded Date/ Time Advance Directives on File No March 12, 2023 7:20am Name of Medical Power of Five [employer] Blade () March 12, 2023 7:20am Advance Directives Yes March 12 7:20am Living Will Yes March 12, 2023 7:20am Power of Five [employer]er Yes March 12 7:20am Advance Directive Response Recorded Date/ Time Advance Directives Yes March 12 6:20am Living Will Yes March 12, 2023 6:20am Power of Five Roll [employer]iner [employer]er Yes March 12 6:20am Advance Directive Response Recorded Date/ Time Advance Directives on File No December 22, 2024 7:49am Living Will Yes December 22, 2024 7:49am Do you have a Healthcare Power of Five Roll [employer]iner B[employer]er? Yes December 22, 2024 7:49am Name of Medical Power of Five [employer] Blade Camargo December 22, 2024 7:49am Advance Directives Yes December 22 7:49am Advance Directive Response Recorded Date/ Time Advance Directives on File No December 22, 2024 7:49am Living Will Yes December 22, 2024 7:49am Do you have a Healthcare Power of Five [employer]iner B[employer]er? Yes December 22, 2024 7:49am Name of Medical Power of Five Roll [employer] Blade Camargo December 22, 2024 7:49am Advance Directives Yes December 22 7:49am Living Will Yes March 12, 2023 7:20am Do you have a Healthcare Power of Five Roll [employer]iner Batch Mixer? Yes March 12, 2023 7:20am Summary Purpose Family History No Family History Records Found Additional Source Comments Goals (unrecognized section and content) Goals may be documented in a n alternate sectionGoals may be documented in an alternate sectionGoals may be documented in an alternate sectionGoals may be documented in an alternate sectionGoals may be documented in an alternate sectionGoals may be documented in an alternate section Care Teams (unrecognized sec tion and content) Team Status: Active Member Role Status Dates Linh Strickland DO Primary Care Provider Active Team Status: Active Member Role Status Dates Linh Strickland DO Primary Care Provider Active Dr. Dangelo Rome MD Attending Provider Active Team Status: Inactive Member Role Status Dates Linh Strickland DO Primary Care Provider Active SAVANAH Gillette Attending Provider, Referring Provid er Active Team Status: Inactive Member Role Status Dates Linh Strickland DO Primary Care Provider, Referring Provider Active SAVANAH Crenshaw Attending Provider Active Team Status: Active Member Role Status Dates Linh Strickland DO Primary Care Provider Active Dr. Dangelo Rome MD Referring Provider, Other Provide r Active SAVANAH Crenshaw Attending Provider Active Team Status: Inactive Member Role Status Dates Linh Strickland DO Primary Care Provider Active Dr. Dangelo Rome MD Attending Provider, Referring Pro vider Active Team Status: Active Member Role Status Hannah Cisneros MD Primary Care Provider Active Team Status: Inactive Member Role Status Hannah Cisneros MD Primary Care Provider Active St art: December 22, 2024 End: December 22, 2024 Dr. Dangelo Rome MD Attending Provider Active S tart: December 22, 2024 End: December 22, 2024 Dr. Dangelo Rome MD Referring Provider Active S tart: December 22, 2024 End: December 22, 2024 Team Status: Active Member Role Status Hannah Cisneros MD Primary Care Provider Active St art: December 22, 2024 Dr. Dangelo Rome MD Attending Provider Active S tart: December 22, 2024 Dr. Dangelo Rome MD Referring Provider Active S tart: December 22, 2024 Dr. Dangelo Rome MD Other Provider Active Start : December 22, 2024 Team Status: Inactive Member Role Status Hannah Cisneros MD Primary Care Provider Active St art: December 26, 2024 End: December 26, 2024 SAVANAH Gillette Attending Provider Active Star t: December 26, 2024 End: December 26, 2024 SAVANAH Gillette Referring Provider Active Star t: December 26, 2024 End: December 26, 2024 Team Status: Active Member Role Status Hannah Cisneros MD Primary Care Provider Active St art: December 26, 2024 Dr. Dangelo Rome MD Attending Provider Active S tart: December 26, 2024 INFORMATION SOURCE (unrecogn ized section and content) DATE CREATED AUTHOR 02/27/2025 [facility] FOR RECORDS PERTAINING TO PATIENTS WHO ARE OR HAVE BEEN ENROLLED IN A CHEMICAL DEPENDENCY/SUBSTANCEABUSE PROGRAM, SOME INFORMATION MAY BE OMITTED. This clinical summary was aggregated from multiple sources. Caution should be exercised in using it in the provision of clinical care. This summary normalizes information from multiple sources, and as a consequence, information in this document may materially change the coding, format and clinical context of patient data. In addition, data may be omitted in some cases. CLINICAL DECISIONS SHOULD BE BASED ON THE PRIMARY CLINICAL RECORDS. [facility] [employer] [facility]. provides no warranty or guarantee of the accuracy or completeness of information in this document.
== END | disposition home or self-care (01) ==
PROVIDERS: PCP Family Medicine; Referring Provider Physician Assistant; Visit Provider Physician Assistant
DX: Z48.812 Encounter for surgical aftercare following surgery on the circulatory system (principal); I87.1 Compression of vein
CPT/HCPCS: 93978